=== PATIENT | female | born 1955 | race African-American/Black ===

== ENCOUNTER 2017-04-25 11:48 | Inpatient (IN) | payer OTHER ==
[2017-04-25 12:34] LABS: #Eosinphils 0.1 thou/uL (0.0-0.7); #Lymphocytes 0.8 thou/uL (1.20-3.40); #Monocytes 0.6 thou/uL (0.11-0.59); #Neutrophils 5.9 thou/uL (1.40-6.50); %Basophils 0.3 % (0.0-1.0); %Eosinophils 0.7 % (0.0-10.0); %Lymphocytes 11.2 % (21.0-51.0); %Monocytes 7.7 % (0.0-10.0); %Neutrophils 80.1 % (42.0-75.0); Hemoglobin 11.9 g/dL (12.0-16.0); Mean Corpuscular HGB CONC 30.1 g/dL (32.0-36.0); Mean Corpuscular Hemoglobin 25.7 pg (27.0-31.0); Mean Corpuscular Volume 85.3 fl (81.0-99.0); Mean Platelet Volume 7.7 fL (7.4-10.4); Platelet Count 283 thou/uL (130-400); RBC Distribution Width 15.2 % (11.5-14.5); Red Blood Cell (RBC) Count 4.62 mill/uL (4.20-5.40); White Blood Cell (WBC) Count 7.4 thou/uL (4.8-10.8)
--- NOTE | 2017-04-25 12:55 | RAD ---
PORTABLE CHEST: History: Abdominal pain, diarrhea. Congestion. Comparison: 04-23-17 FINDINGS: Film is suboptimal. The patient is poorly positioned with rotation and there is motion artifact. No confluent consolidation. I cannot exclude subtle infiltrate on this study. IMPRESSION: Suboptimal exam. If there is concern for pneumonia, recommend repeat study with better positioning an d better exposure. POS: [facility]
[2017-04-25 12:59] LABS: ALT (SGPT) 41 U/L (8-55); AST (SGOT) 72 U/L (5-34); Albumin 3.7 g/dL (3.4-4.8); Alkaline Phosphatase 112 U/L (40-150); Anion Gap 16 mmol/L (10-20); BUN (Urea Nitrogen) 22 mg/dL (9.8-20.1); Bilirubin, Total 0.5 mg/dL (0.2-1.2); CK (CPK) 1850 U/L (29-168); Calc. Creatinine Clearance 0 mL/min (70-130); Calcium 9.6 mg/dL (7.8-10.44); Carbon Dioxide 26 mmol/L (23-31); Chloride 99 mmol/L (98-107); Estimated GFR-MDRD 55; Globulin 4.8 g/dL (2.4-3.5); Glucose 122 mg/dL (80-115); Protein, Total 8.5 g/dL (6.0-8.3); Sodium 137 mmol/L (136-145)
[2017-04-25 13:09] LABS: CKMB 4.3 ng/mL (0-6.6); Troponin I 0.033 ng/mL (< 0.028)
[2017-04-25] MEDS ORDERED: Dextrose 50% Abboject 50 ML SYRINGE SLOW IVP PRN (15:54)
[2017-04-25] MEDS ORDERED: Ondansetron ODT 4 MG TAB PO PRN (15:54)
[2017-04-25] MEDS ORDERED: Sodium Chloride 0.9% 1,000 ML IV SCH (15:54)
[2017-04-25] MEDS ORDERED: Dextrose 5% in Water 1,000 ML IV PRN (15:54)
[2017-04-25] MEDS ORDERED: Oseltamivir 75 MG CAP PO SCH (16:00)
[2017-04-25 16:07] LABS: Troponin I 0.044 ng/mL (< 0.028)
[2017-04-25] MEDS: Labetalol HCl 100 MG/20 ML VIAL SLOW IVP SCH (16:34)
[2017-04-25] MEDS: Sodium Chloride 0.9% 1,000 ML IV SCH ×2 (16:35→22:06)
[2017-04-25] MEDS ORDERED: Benzonatate 100 MG CAP PO PRN (16:45)
[2017-04-25] MEDS ORDERED: Ondansetron ODT 8 MG TAB PO PRN (16:45)
[2017-04-25] MEDS ORDERED: Naproxen 500 MG TAB PO PRN (16:45)
[2017-04-25] MEDS ORDERED: Clotrimazole 1 % Cream 30 GM TUBE TOP PRN (16:45)
[2017-04-25] MEDS: metFORMIN 500 MG TAB PO SCH (17:23)
--- NOTE | 2017-04-25 21:41 | HP-2 ---
CODE STATUS: FULL. PRIMARY CARE PHYSICIAN: Demarco Leavitt M.D. ATTENDING: Kendal Molina M.D. RESIDENT: Mariano Guy MD CHIEF COMPLAINT: Productive cough and weakness. HISTORY OF PRESENT ILLNESS: This 62-year-old female who presents with a 5-day history of cough, feve rs, weakness, and productive secretions from her trach. She notes some pain around her trach site. She also notes that she is currently treated for urinary tract infection with Macrobid that started o n Saturday. Her son states that she has been basically bedbound for the past week because she has bee n feeling sick. At baseline, she uses a wheelchair for ambulation most times. She also denies chest pain at this time. She does admit to nausea, vomiting, diarrhea, and fatigue. She does admit to co ugh, congestion, shortness of breath as well. She has no other complaints at this time. In the ER, she was given DuoNebs, normal saline 1 liter bolus, and a normal saline at 100 mL per hour. PAST MEDICAL HISTORY: Significant for obesity hypoventilation syndrome, diabetes mellitus type 2, hy pertension, hyperlipidemia, coronary artery disease, hypothyroidism, obstructive sleep apnea, asthma, carpal tunnel, severe muscle deconditioning, and insomnia. PAST SURGICAL HISTORY: She has had a tubal ligation, then a hysterectomy, then a toenail removal, an d a tracheostomy placed in 2009. ALLERGIES: ASPIRIN and ROCEPHIN. MEDICATIONS: The patient is on: 1. Insulin NPH 70/30, 38 units SC a.m. as well as 28 units SC p.m. 2. Lotrimin 1% cream. 3. Clonidine 0.3 mg b.i.d. 4. Nitrofurantoin. 5. Macrobid 100 mg b.i.d. for the next 2 days. 6. Zofran 8 mg q.6 h. p.r.n. 7. Pataday 1 drop in each eye daily. 8. Hydrochlorothiazide 25 mg q.a.m. 9. Tylenol with Codeine No. 3 one to two tabs p.o. q.4 h. p.r.n. 10. Flexeril 10 mg p.o. q.8 h. p.r.n. 11. Isosorbide mononitrate 120 mg p.o. daily. 12. Clopidogrel bisulfate 75 mg p.o. daily. 13. Pantoprazole 40 mg p.o. daily. 14. Metformin 500 mg p.o. b.i.d. with meals. 15. Naprosyn 500 mg p.o. b.i.d. 16. Amlodipine and valsartan 10-160 mg 1 tablet p.o. daily. 17. Ferrous sulfate 325 mg. 18. Zolpidem tartrate 10 mg at bedtime. 19. Benzonatate 100 mg p.o. at bedtime. 20. Synthroid 125 mcg daily. 21. Potassium chloride 8 mEq 2 tabs p.o. daily. FAMILY HISTORY: Noncontributory. SOCIAL HISTORY: The patient had a [id number] smoking history, but she quit 30 years ago. No alcoh ol and no drug use. REVIEW OF SYSTEMS: GENERAL: She does admit to fevers and fatigue. Denies any weight changes or appetite changes. EYES: Denies vision changes or eye pain. ENT: Denies nasal congestion, rhinorrhea, sore throat. RESPIRATORY: Admits to cough, congestion, shortness of breath. Cardiovascular: Denies any chest pa in or palpitations. GASTROINTESTINAL: Denies any nausea. She does admit to vomiting and diarrhea. GENITOURINARY: Denies any incontinence, dysuria. SKIN: Denies any rashes or lesions except for some areas underneath some of her skin folds that get sweaty and can shave at times. MUSCULOSKELETAL: No pain, tenderness, stiffness, swelling, or arthritis in joints. NEUROLOGIC: She does admit to weakness and numbness especially in her right hand for carpal tunnel. PSYCHIATRIC: She denies anxiety or depression. PHYSICAL EXAMINATION: VITAL SIGNS: Blood pressure is 177/98, pulse is 97, respiration is 19, temperature max 100.7, pulse ox 99% on room air. Current weight is 174 kilos. GENERAL: She is alert and oriented x4. She is morbidly obese, appropriately interactive. EYES: PERRLA. Conjunctivae are within normal limits. ENT: Tympanic membranes pearly corral without bulging or erythema. Nasal mucosa and oropharynx are wi thin normal limits. NECK: Supple, no lymphadenopathy, no thyromegaly. She does have a tracheostomy in place. CARDIOVASCULAR: Regular rate and rhythm. No murmurs, no gallops. Radial and pedal pulses were equa l bilaterally. RESPIRATORY: Normal effort, no retractions. Lungs are clear to auscultation bilaterally. SKIN: Warm and dry. No cyanosis. No lesions. ABDOMEN: Soft, nontender to palpation. Bowel sounds are present x4. No mass or distention, but she has a very obese abdomen. EXTREMITIES: No clubbing, cyanosis, or edema. MUSCULOSKELETAL: Structure, tone, muscle strength, and range of motion within normal limits, but thi s patient is nonambulatory. NEUROLOGIC: No focal neurologic deficits. Sensation: Cranial nerves II through XII grossly intact. GCS was 15. PSYCHIATRIC: Appropriate. LABORATORY DATA: She had a white blood cell count 7.4, platelet count 284, hemoglobin 11.9, hematocr it 39.4, MCV 85.3%, neutrophils 80.1. CK was 1850, CK-MB was 4.3. Troponin I was 0.033. Sodium was 137, potassium 4.0, chloride 99, bicarb 26, BUN was 22, creatinine 1.21, glucose 122, calcium 9.6, t otal protein 8.5, albumin 3.7, total bilirubin 0.5, AST was 72, ALT was 41. Alkaline phosphatase was 111. Influenza A was positive. Influenza B was negative. Lactate was 0.8. EKG showed normal sinu s rhythm. Chest x-ray showed suboptimal, I cannot exclude a subtle infiltrate at this time. ASSESSMENT AND PLAN: A 62-year-old female that presents with 1. Influenza A. We will give her Tamiflu and supportive care. 2. Rhabdomyolysis. We will give her IV fluid and will track her CK going forward. 3. For an acute kidney injury, we will give her IV fluids and track her CK going forward as well. 4. Elevated troponins. We are going to trend. We will repeat an EKG if symptomatic. We do not ming lly feel like this is a cardiac cause at all, but we will ensure that the troponins that do downtrend . 5. Urinary tract infection. We will continue her Macrobid to complete that course. 6. For her status post tracheostomy, we will give her trach care and make sure that she has the appr opriate amount of oxygen saturation supplementation. 7. Obstructive sleep apnea. We will use her home BiPAP at night. 8. Diabetes mellitus type 2. We will continue her home meds, possibly check an A1c depending on how well her sugars are controlled. 9. Hypertension. We will continue her home meds from there. 10. Hypothyroidism. We will continue her home meds. DISPOSITION AND LENGTH OF HOSPITAL STAY: Will be inpatient and 2. Symptomatic medications will be provided. History and physical exam, as well as management, has been discussed with Dr. Molina.
[2017-04-25] MEDS: cloNIDine 0.3 MG TAB PO SCH (22:05)
[2017-04-25] MEDS: Nitrofurantoin Monohyd/M-Cryst 100 MG CAP PO SCH (22:06)
[2017-04-25] MEDS: Zolpidem Tartrate 5 MG TAB PO PRN (22:07)
[2017-04-25] MEDS: Cyclobenzaprine 10 MG TAB PO PRN (22:07)
[2017-04-25] MEDS: Acetaminophen 325 MG TAB PO PRN (22:07)
[2017-04-26] MEDS: Sodium Chloride 0.9% 1,000 ML IV SCH ×5 (04:57→21:19)
[2017-04-26 06:08] LABS: Anion Gap 18 mmol/L (10-20); BUN (Urea Nitrogen) 21 mg/dL (9.8-20.1); Calc. Creatinine Clearance 134 mL/min (70-130); Calcium 8.8 mg/dL (7.8-10.44); Carbon Dioxide 21 mmol/L (23-31); Chloride 105 mmol/L (98-107); Estimated GFR-MDRD 57; Glucose 94 mg/dL (80-115); Potassium 4.4 mmol/L (3.5-5.1); Sodium 140 mmol/L (136-145)
--- NOTE | 2017-04-26 06:25 | PDOC.FM ---
- Subjective Subjective: Patient had a good night. She states she still feels sick at the moment. She is still getting increased secretions from her trach that are being suctioned out. She denies any difficulty breathing or chest pain. She denies n/v/d, fevers, or chills. She states she has no aches or pains anywhere. She also states that she has no been able to get out of bed, but that is not far from her normal. She has no other complaints at this time. - Objective Vital Signs & Weight: Vital Signs (12 hours) Temp Pulse Resp BP BP Pulse Ox 04/26/17 04:00 98.8 F 83 16 132/63 100 04/26/17 02:19 98 04/26/17 02:16 98 04/25/17 23:40 96 04/25/17 22:05 142/89 H 04/25/17 20:10 96 04/25/17 20:06 96 04/25/17 20:05 100.0 F H 95 20 142/89 H 95 Weight Weight 169.19 kg I&O: 04/24/17 04/25/17 04/26/17 06:59 06:59 06:59 Intake Total 480 Balance 480 Result Diagrams: 04/25/17 12:09 04/26/17 05:04 <Mariano Guy - Last Filed: 04/26/17 09:11> - Objective Vital Signs & Weight: Vital Signs (12 hours) Temp Pulse Resp BP Pulse Ox 04/29/17 12:00 97.9 F 04/29/17 08:13 174/100 H 04/29/17 08:12 74 174/100 H 04/29/17 08:00 97.8 F 74 24 H 94 L Weight Admit Weight 169.19 kg Weight 176.3 kg Most Recent Monitor Data Heart Rate from ECG 72 NIBP 145/85 NIBP BP-Mean 104 Respiration from ECG 0 SpO2 92 I&O: 04/28/17 04/29/17 04/30/17 06:59 06:59 06:59 Intake Total 6374 3318 120 Output Total 1730 3315 1210 Balance 2773 -757 -1090 Result Diagrams: 04/29/17 05:03 04/29/17 05:03 <Kendal Molina - Last Filed: 04/29/17 16:00> Phys Exam - Physical Examination Constitutional: NAD HEENT: PERRLA, moist MMs Neck: no nodes, no JVD Trach in place Respiratory: no wheezing, clear to auscultation bilateral Cardiovascular: RRR, no significant murmur Gastrointestinal: soft, non-tender, no distention, positive bowel sounds Very obese Musculoskeletal: no edema, pulses present Neurological: non-focal, normal sensation, moves all 4 limbs Lymphatic: no nodes Psychiatric: normal affect, A&O x 3 Skin: no rash <Mariano Guy - Last Filed: 04/26/17 09:11> Dx/Plan (1) Influenza A Code(s): J10.1 - FLU DUE TO OTH IDENT INFLUENZA VIRUS W OTH RESP MANIFEST Status: Acute (2) Rhabdomyolysis Code(s): M62.82 - RHABDOMYOLYSIS Status: Acute (3) Pickwickian syndrome Code(s): E66.2 - MORBID (SEVERE) OBESITY WITH ALVEOLAR HYPOVENTILATION Status : Acute (4) Asthma Code(s): J45.909 - UNSPECIFIED ASTHMA, UNCOMPLICATED Status: Acute (5) Hypertension Code(s): I10 - ESSENTIAL (PRIMARY) HYPERTENSION Status: Acute (6) Hypothyroidism Code(s): E03.9 - HYPOTHYROIDISM, UNSPECIFIED Status: Acute (7) NILE (obstructive sleep apnea) Code(s): G47.33 - OBSTRUCTIVE SLEEP APNEA (ADULT) (PEDIATRIC) Status: Acute (8) DM2 (diabetes mellitus, type 2) Status: Acute (9) Coronary artery disease Code(s): I25.10 - ATHSCL HEART DISEASE OF [place] CORONARY ARTERY W/O ANG PCTRS Status: Acute - Plan Plan: 1. Influenza A - Continue Tamiflu - Continue supportive care 2. Rhabdomyelysis - Elevated CK previously into 600s on previous admissions - CK 1850 on admission - Continue IVF - Today CK 1870, will increase IVF 3. Pickwickian Syndrome - Continue Trach care - Continue O2 supplementation 4. Asthma - Continue home meds - Continue nebs 5. HTN - Continue home meds - Labetolol PRN 6. Hypothyroidism - Continue synthroid 7. NILE - Bipap machine at night 8. DM2 - Continue home meds - Accuchecks - SSI 9. CAD - Continue Plavix Disposition: Stable. Will track CK and discharge planning will be made from there. <Mariano Guy - Last Filed: 04/26/17 09:11> Attending Addendum - Attending Addendum I personally evaluated the patient and discussed the management with Dr. Guy on 04/26/17. I agree with the History, Examination, Assessment and Plan documented above with any addition or exceptions noted below- Patient reporting some increased cough and increased secretions that she is needing to suction via her trach. Still with decreased appetite. Afebrile VSS A/P: 1) Influenza A- continue Tamiflu; continue supportive care. 2) Rhabdomyolysis- continue IVF. 3) Obesity hypoventilation syndrome- continue supportive care. 4) DM- BG stable; continue current meds. <Kendal Molina - Last Filed: 04/29/17 16:00>
[2017-04-26] MEDS: Levothyroxine Sodium 125 MCG TAB PO SCH (06:41)
[2017-04-26 06:57] LABS: CKMB 4.1 ng/mL (0-6.6)
[2017-04-26 07:35] LABS: Troponin I 0.041 ng/mL (< 0.028)
[2017-04-26] MEDS ORDERED: Non-Formulary Item 1 EACH (Amlodipine Besylate/Valsartan [Amlodipine-Valsartan 10-160 Mg] PO SCH (09:00)
[2017-04-26] MEDS: Ketotifen Fumarate 0.025% Ophth Soln 5 ml Bottle EA EYE SCH (09:02)
[2017-04-26] MEDS: Insulin NPH/Reg Insulin Hm 300 UNITS/3 ML VIAL SC SCH (09:02)
[2017-04-26] MEDS: Potassium Chloride 8 MEQ TAB PO SCH (09:03)
[2017-04-26] MEDS: metFORMIN 500 MG TAB PO SCH ×2 (09:03→16:55)
[2017-04-26] MEDS: cloNIDine 0.3 MG TAB PO SCH ×2 (09:03→21:20)
[2017-04-26] MEDS: Valsartan 80 MG TAB PO SCH (09:03)
[2017-04-26] MEDS: Ferrous Sulfate 325 MG TAB PO SCH (09:03)
[2017-04-26] MEDS: Hydrochlorothiazide 25 MG TAB PO SCH (09:03)
[2017-04-26] MEDS: Amlodipine 10 MG TAB PO SCH (09:04)
[2017-04-26] MEDS: Enoxaparin Sodium 40 MG/0.4 ML SYRINGE SC SCH (09:04)
[2017-04-26] MEDS: Acetaminophen 325 MG TAB PO PRN ×3 (09:04→21:34)
[2017-04-26] MEDS: Clopidogrel Bisulfate 75 MG TAB PO SCH (09:04)
[2017-04-26] MEDS: Nitrofurantoin Monohyd/M-Cryst 100 MG CAP PO SCH ×2 (09:04→21:20)
[2017-04-26] MEDS: Oseltamivir 75 MG CAP PO SCH ×2 (09:04→21:20)
--- NOTE | 2017-04-26 11:41 | PDOC.EVN ---
Event Note - Event Note Event Note: I personally evaluated the patient and discussed the management with Dr. Guy on 04/25/17. I agree with history, examination, assessment and plan as documented by the resident. Briefly this is a 62 yo BF with h/o obesity/ hypoventilation syndrome with trach, type 2 DM, HTN, HLD, hypothyroidism presents c/o fever/chills, weakness, body aches, and increased cough with sputum production. Symptoms began 5 days ago. Also recently seen and started on treatment for UTI. No ill contacts. Has not been as mobile in her wheelchair due to her symptoms. PE: T100.7 P97 BP 177/98 RR19 99% on RA Lungs- CTA b/l CV- RRR, no murmur Abd- soft, protuberant; nt Labs: WBC 7.4 CK 1850 Cr 1.21 Influenza A positive A/P: 1) Influenza A - start tamiflu - continue trach collar 2) AURELIO - continue IVF 3) Rhabdomyolysis -continue IVF and monitor
[2017-04-26] MEDS: Cyclobenzaprine 10 MG TAB PO PRN (21:21)
[2017-04-26] MEDS: Zolpidem Tartrate 5 MG TAB PO PRN (21:21)
[2017-04-27] MEDS: Sodium Chloride 0.9% 1,000 ML IV SCH ×6 (01:08→22:11)
[2017-04-27] MEDS: Acetaminophen 325 MG TAB PO PRN ×2 (02:48→07:47)
[2017-04-27 05:20] LABS: Anion Gap 16 mmol/L (10-20); BUN (Urea Nitrogen) 22 mg/dL (9.8-20.1); CK (CPK) 1639 U/L (29-168); Calc. Creatinine Clearance 134 mL/min (70-130); Calcium 8.7 mg/dL (7.8-10.44); Carbon Dioxide 22 mmol/L (23-31); Chloride 108 mmol/L (98-107); Estimated GFR-MDRD 57; Glucose 99 mg/dL (80-115); Potassium 4.7 mmol/L (3.5-5.1); Sodium 141 mmol/L (136-145)
--- NOTE | 2017-04-27 06:12 | PDOC.FM ---
- Subjective Subjective: Patient refused home ventilator overnight as it was causing discomfort. Sometime overnight she was transitioned from 3L of O2 to 12L O2 to trach. This AM she was tachypneic and having difficulty getting 2 words out without being short of breath. Nurses reported that they were having trouble keeping her sats above 85%. Patient appeared to be using accessory muscles of respiration. - Objective MAR Reviewed: Yes Vital Signs & Weight: Vital Signs (12 hours) Temp Pulse Resp BP BP Pulse Ox 04/27/17 02:23 104 H 28 H 96 04/26/17 22:44 99 22 H 04/26/17 21:20 135/68 04/26/17 19:45 98.5 F 96 18 135/68 94 L 04/26/17 19:10 82 22 H 93 L Weight Admit Weight 169.19 kg Weight 170.46 kg I&O: 04/25/17 04/26/17 04/27/17 06:59 06:59 06:59 Intake Total 19370 Balance 1937 3270 Result Diagrams: 04/25/17 12:09 04/27/17 04:16 EKG Reviewed by me: No Radiology Reviewed by me: No Phys Exam - Physical Examination Appeared to be in acute respiratory distress HEENT: moist MMs Neck: supple Diffuse wheezing throughout, tachypneic Cardiovascular: RRR Gastrointestinal: soft, positive bowel sounds Musculoskeletal: pulses present Neurological: non-focal Psychiatric: normal affect Skin: no rash, cap refill <2 seconds Dx/Plan (1) Acute respiratory failure with hypoxia and hypercapnia Code(s): J96.01 - ACUTE RESPIRATORY FAILURE WITH HYPOXIA; J96.02 - ACUTE RESPIRATORY FAILURE WITH HYPERCAPNIA Status: Acute (2) Influenza A Code(s): J10.1 - FLU DUE TO OTH IDENT INFLUENZA VIRUS W OTH RESP MANIFEST Status: Acute (3) Rhabdomyolysis Code(s): M62.82 - RHABDOMYOLYSIS Status: Acute (4) DM2 (diabetes mellitus, type 2) Status: Chronic (5) Pickwickian syndrome Code(s): E66.2 - MORBID (SEVERE) OBESITY WITH ALVEOLAR HYPOVENTILATION Status : Chronic (6) Asthma Code(s): J45.909 - UNSPECIFIED ASTHMA, UNCOMPLICATED Status: Chronic (7) Hypothyroidism Code(s): E03.9 - HYPOTHYROIDISM, UNSPECIFIED Status: Acute (8) Morbid obesity with BMI of 70 and over, adult Code(s): E66.01 - MORBID (SEVERE) OBESITY DUE TO EXCESS CALORIES; Z68.45 - BODY MASS INDEX (BMI) 70 OR GREATER, ADULT Status: Chronic (9) NILE (obstructive sleep apnea) Code(s): G47.33 - OBSTRUCTIVE SLEEP APNEA (ADULT) (PEDIATRIC) Status: Chronic - Plan Plan: 1. Influenza A - Continue Tamiflu for total of 5 days - Continue supportive care 2. Rhabdomyolysis - Elevated CK; in 600s on previous admissions - CK 1850 on admission; down to 1639 today - Continue IVF; NS @ 225 ml/hr 3. Pickwickian Syndrome - Continue Trach care - Continue O2 supplementation 4. Asthma - Continue home meds - Continue nebs 5. HTN - Continue home meds - Labetolol PRN 6. Hypothyroidism - Continue synthroid 7. NILE - Bipap machine at night 8. DM2 - Continue home meds - Accuchecks - SSI - BG 99 this AM 9. CAD - Continue Plavix 10. Acute hypoxic hypercapneic respiratory failure - Patient transitioned to ICU for ventilator care - Repeat CXR to rule out new infection - Continue suctioning trach - Continue nebulizer treatments - Consult pulmonology Disposition: Patient transitioned to ICU for acute hypoxic, hypercapneic respiratory failure
[2017-04-27] MEDS: Levothyroxine Sodium 125 MCG TAB PO SCH (06:36)
[2017-04-27] MEDS: Labetalol HCl 100 MG/20 ML VIAL SLOW IVP SCH (06:44)
[2017-04-27] MEDS ORDERED: Clopidogrel Bisulfate 75 MG TAB ONE ×2 (07:42→07:58)
[2017-04-27] MEDS: Enoxaparin Sodium 40 MG/0.4 ML SYRINGE SC SCH (07:45)
[2017-04-27] MEDS: Clopidogrel Bisulfate 75 MG TAB PO SCH (07:45)
[2017-04-27] MEDS: Potassium Chloride 8 MEQ TAB PO SCH (07:46)
[2017-04-27] MEDS: Hydrochlorothiazide 25 MG TAB PO SCH (07:46)
[2017-04-27] MEDS: Amlodipine 10 MG TAB PO SCH (07:46)
[2017-04-27] MEDS: metFORMIN 500 MG TAB PO SCH ×3 (07:46→17:38)
[2017-04-27] MEDS: Valsartan 80 MG TAB PO SCH (07:46)
[2017-04-27] MEDS: Ferrous Sulfate 325 MG TAB PO SCH (07:46)
[2017-04-27] MEDS: cloNIDine 0.3 MG TAB PO SCH ×2 (07:46→20:42)
[2017-04-27] MEDS: Ketotifen Fumarate 0.025% Ophth Soln 5 ml Bottle EA EYE SCH (07:47)
[2017-04-27] MEDS: Insulin NPH/Reg Insulin Hm 300 UNITS/3 ML VIAL SC SCH (07:47)
[2017-04-27] MEDS: Nitrofurantoin Monohyd/M-Cryst 100 MG CAP PO SCH ×2 (07:47→20:43)
[2017-04-27] MEDS: Oseltamivir 75 MG CAP PO SCH ×2 (07:47→20:43)
[2017-04-27 08:21] LABS: CO2 Tension 65.1 mmHg (35.0-45.0); O2 Tension (PaO2) 55.6 mmHg (80.0-100.0); pH, Arterial 7.27 (7.35-7.45)
[2017-04-27 08:22] LABS: Calcium, Ionized 1.2 mmol/L (1.12-1.30); Hematocrit-ABG 37.1 % (36.0-47.0); Hemoglobin (Hb) 10.8 g/dL (12.0-16.0)
[2017-04-27 08:23] LABS: ALV-art Gradient 112.575 (0-20); Puncture Site RRA
[2017-04-27] MEDS ORDERED: guaiFENesin 200 MG TAB PO PRN (10:13)
--- NOTE | 2017-04-27 10:33 | RAD ---
CHEST 1 VIEW: HISTORY: Dyspnea. COMPARISON: 04/25/17. FINDINGS: Cardiac silhouette is magnified is magnified and enlarged. The patient is rotated rightward. Pulmon elsa vascular engorgement and widespread parenchymal opacity have increased since the prior study. Tr acheostomy appliance overlies the upper trachea. IMPRESSION: Worsening pulmonary edema. POS: [facility]
--- NOTE | 2017-04-27 10:48 | RAD ---
SINGLE VIEW OF THE CHEST: COMPARISON: 04/27/17 at 9:57 a.m. FINDINGS: A single view of the chest shows a normal-size cardiomediastinal silhouette. The tracheostomy is unc hanged in position. There are stable multifocal infiltrates. IMPRESSION: Stable multifocal infiltrates. POS: [facility]
[2017-04-27] MEDS: Vancomycin HCl 1 GM in Premix Bag 1 BAG IVPB SCH (14:15)
--- NOTE | 2017-04-27 19:41 | ADD-PRG ---
DATE OF SERVICE: 04/27/2017 Please see the note from Dr. Lund, for which I concur. The patient is being transferred to the ICU. The patient was seen and evaluated and examined with the residents floor basically called us he r ABG results and realized how poor it looked, we immediately went to evaluate her by bedside and was definitely tachypneic and struggling to breathe, consistent with her ABG, which showed a pH 7.27, pC O2 of 65, pO2 of 55.6, trach collar 35% O2. The patient was transferred to the unit, where we would get chest x-rays, pulmonary involved, put her on a ventilator and we will likely add antibiotics for likely superimposed pneumonia on top of the flu that she has and fluids as needed and maybe for sedat ion or little bit more comfortable right now.
--- NOTE | 2017-04-27 21:39 | CON ---
DATE OF CONSULTATION: 04/27/2017 HISTORY OF PRESENT ILLNESS: Ms. Peterson is a 62-year-old female. She has a cuffed #[address] She has a home nighttime ventilator. This was done, she tells me in 2009. She presented t o the hospital on the with complaints of cough, weakness, fever, pain around her trach, some mil d shortness of breath. She was on Macrobid for urinary tract infection. She is nonambulatory essentially. She was admitted to the telemetry unit would not wear her nocturnal ventilation last night. She was transferred to the ICU because of hypercarbia and acidemia today. I was consulted to assist in her m anagement. PAST MEDICAL HISTORY: Remarkable for Pickwickian syndrome, diabetes, hypertension, lipid disorder, h istory of coronary artery disease, history of hypothyroidism, history of life threatening obesity, hi story of tubal ligation, status post hysterectomy. SOCIAL HISTORY: She is a nonsmoker, nondrinker, nondrug user. ALLERGIES: ASPIRIN and CEPHALOSPORINS. MEDICATIONS: She reportedly on NPH insulin, Catapres, Macrodantin, hydrochlorothiazide, Ismo, Plavix , Protonix, metformin, Naprosyn, amlodipine, Ambien, Tessalon, Synthroid, iron. She is a distant smoker. FAMILY HISTORY: Negative for lung disease at an early age. REVIEW OF SYSTEMS: Ten point review of systems otherwise negative. PHYSICAL EXAMINATION: GENERAL: She is afebrile, heart rate 76, blood pressure 101/49, respiratory rate was in the teens. She was awake. HEENT: Pupils are equal. Sclerae is anicteric. NECK: Supple. Her cuff was inflated to her tracheostomy and she was connected to her home ventilato r. LUNGS: Clear. HEART: Regular rhythm. S1 and S2 are normal. ABDOMEN: Soft and nontender. EXTREMITIES: Without asymmetry. LABORATORY DATA: There is no CBC today. There is electrolytes today with sodium of 141, potassium 4 .7, chloride 108, bicarb 22, BUN 22, creatinine 1.17. Blood gas today 7.27, CO2 of 65, pO2 of 55. C hest radiograph shows patchy bilateral infiltrates. Admitting film was of poor quality for compariso n, I have reviewed these. IMPRESSION: Pneumonia, likely post-viral. PLAN: Mechanical ventilation, IV antimicrobial therapy, steroids, nebulizer treatments, repeat blood gas in the morning. Critical care time was 30 minutes.
[2017-04-28] MEDS: Vancomycin HCl 1 GM in Premix Bag 1 BAG IVPB SCH ×2 (01:00→12:45)
[2017-04-28 04:07] LABS: Band 10 % (5-11); Hemoglobin 10.4 g/dL (12.0-16.0); Lymphocytes 12 % (21-51); MDiff Complete? YES; Mean Corpuscular Hemoglobin 25.1 pg (27.0-31.0); Mean Corpuscular Volume 86.4 fl (81.0-99.0); Mean Platelet Volume 7.7 fL (7.4-10.4); Metamyelocyte 2 % (0-0); Monocytes 1 % (0-10); Neutrophil 75 % (42-75); Platelet Count 239 thou/uL (130-400); RBC Distribution Width 15.3 % (11.5-14.5); Red Blood Cell (RBC) Count 4.14 mill/uL (4.20-5.40); White Blood Cell (WBC) Count 4.2 thou/uL (4.8-10.8)
[2017-04-28 04:09] LABS: Anion Gap 14 mmol/L (10-20); BUN (Urea Nitrogen) 21 mg/dL (9.8-20.1); CK (CPK) 917 U/L (29-168); Calc. Creatinine Clearance 145 mL/min (70-130); Calcium 8.8 mg/dL (7.8-10.44); Carbon Dioxide 26 mmol/L (23-31); Chloride 104 mmol/L (98-107); Estimated GFR-MDRD 62; Glucose 159 mg/dL (80-115); Potassium 5.3 mmol/L (3.5-5.1); Sodium 139 mmol/L (136-145)
[2017-04-28] MEDS: Sodium Chloride 0.9% 1,000 ML IV SCH ×5 (05:00→21:44)
--- NOTE | 2017-04-28 06:18 | PDOC.FM ---
- Objective Vital Signs & Weight: Vital Signs (12 hours) Temp Pulse Resp BP Pulse Ox 04/28/17 02:43 74 33 H 100 04/27/17 21:00 99.1 F 04/27/17 20:42 173/89 H 04/27/17 20:00 99.1 F 85 34 H 95 04/27/17 18:48 69 04/27/17 18:47 66 16 92 L Weight Admit Weight 169.19 kg Weight 170.46 kg I&O: 04/26/17 04/27/17 04/28/17 06:59 06:59 06:59 Intake Total 1938 5770 2129 Output Total 1330 Balance 1937 5770 799 Result Diagrams: 04/28/17 03:15 04/28/17 03:15 Dx/Plan (1) Acute respiratory failure with hypoxia and hypercapnia Code(s): J96.01 - ACUTE RESPIRATORY FAILURE WITH HYPOXIA; J96.02 - ACUTE RESPIRATORY FAILURE WITH HYPERCAPNIA Status: Acute (2) Influenza A Code(s): J10.1 - FLU DUE TO OTH IDENT INFLUENZA VIRUS W OTH RESP MANIFEST Status: Acute (3) Rhabdomyolysis Code(s): M62.82 - RHABDOMYOLYSIS Status: Acute (4) DM2 (diabetes mellitus, type 2) Status: Chronic (5) Pickwickian syndrome Code(s): E66.2 - MORBID (SEVERE) OBESITY WITH ALVEOLAR HYPOVENTILATION Status : Chronic (6) Asthma Code(s): J45.909 - UNSPECIFIED ASTHMA, UNCOMPLICATED Status: Chronic (7) Hypothyroidism Code(s): E03.9 - HYPOTHYROIDISM, UNSPECIFIED Status: Acute (8) Morbid obesity with BMI of 70 and over, adult Code(s): E66.01 - MORBID (SEVERE) OBESITY DUE TO EXCESS CALORIES; Z68.45 - BODY MASS INDEX (BMI) 70 OR GREATER, ADULT Status: Chronic (9) NILE (obstructive sleep apnea) Code(s): G47.33 - OBSTRUCTIVE SLEEP APNEA (ADULT) (PEDIATRIC) Status: Chronic (10) Pneumonia Code(s): J18.9 - PNEUMONIA, UNSPECIFIED ORGANISM Status: Acute Qualifiers: Pneumonia type: due to unspecified organism Laterality: right - Plan Plan: 1. Influenza A - Continue Tamiflu for total of 5 days - Continue supportive care 2. Rhabdomyolysis - Elevated CK; in 600s on previous admissions - CK 1850 on admission; down to 917 today - Continue IVF; NS @ 225 ml/hr 3. Pickwickian Syndrome - Continue Trach care - Continue O2 supplementation 4. Asthma - Continue home meds - Continue nebs 5. HTN - Continue home meds - Labetolol PRN 6. Hypothyroidism - Continue synthroid 7. NILE - Home ventilator at night 8. DM2 - Continue home meds - Accuchecks - SSI - BG 159 this AM 9. CAD - Continue Plavix 10. Acute hypoxic hypercapneic respiratory failure - Patient transitioned to ICU for ventilator care - CXR showed multifocal infiltrates on right - Continue suctioning trach - Continue nebulizer treatments - Appreciate pulmonology recs - Continue IV vancomycin and levoquin for coverage of post-viral pneumonia and CAP - Continue steroids Disposition: Patient transitioned to ICU yesterday for acute hypoxic, hypercapneic respiratory failure. Continue treatment for presumed post-viral pneumonia.
[2017-04-28] MEDS: Levothyroxine Sodium 125 MCG TAB PO SCH (06:31)
[2017-04-28] MEDS: HumaLOG 300 UNITS/3 ML VIAL SC PRN ×3 (06:46→21:55)
[2017-04-28] MEDS: Insulin NPH/Reg Insulin Hm 300 UNITS/3 ML VIAL SC SCH (08:05)
[2017-04-28] MEDS: metFORMIN 500 MG TAB PO SCH ×2 (08:35→16:33)
--- NOTE | 2017-04-28 08:35 | RAD ---
SINGLE VIEW OF THE CHEST: COMPARISON: 04/27/17. HISTORY: Ventilated patient with respiratory failure. FINDINGS: A single view of the chest shows a normal size cardiomediastinal silhouette. A tracheostomy is uncha nged in position. There are subtle multifocal opacities in the lungs. No pleural effusion is seen. IMPRESSION: Stable exam. POS: [facility]
[2017-04-28] MEDS: Ferrous Sulfate 325 MG TAB PO SCH (09:05)
[2017-04-28] MEDS: Enoxaparin Sodium 40 MG/0.4 ML SYRINGE SC SCH (09:06)
[2017-04-28] MEDS: cloNIDine 0.3 MG TAB PO SCH ×2 (09:06→20:25)
[2017-04-28] MEDS: Amlodipine 10 MG TAB PO SCH (09:06)
[2017-04-28] MEDS: Clopidogrel Bisulfate 75 MG TAB PO SCH (09:07)
[2017-04-28] MEDS: Nitrofurantoin Monohyd/M-Cryst 100 MG CAP PO SCH ×2 (09:09→21:44)
[2017-04-28] MEDS: Ketotifen Fumarate 0.025% Ophth Soln 5 ml Bottle EA EYE SCH (09:09)
[2017-04-28] MEDS: Valsartan 80 MG TAB PO SCH (09:25)
[2017-04-28] MEDS: Oseltamivir 75 MG CAP PO SCH ×2 (09:27→21:44)
[2017-04-28] MEDS: Potassium Chloride 8 MEQ TAB PO SCH (09:55)
[2017-04-28 10:32] LABS: Actual Bicarbonate (HCO3a) 23.7 mEq/L (22-26); Base Excess (BEa) -2.4 mEq/L (0 (+/-) 2.5); CO2 Tension 46.6 mmHg (35.0-45.0); Hematocrit-ABG 35.8 % (36.0-47.0); O2 Tension (PaO2) 63.6 mmHg (80.0-100.0); pH, Arterial 7.32 (7.35-7.45)
[2017-04-28 10:33] LABS: Analyzer IN Cardio ER; Calcium, Ionized 1.2 mmol/L (1.12-1.30); Hemoglobin (Hb) 10.5 g/dL (12.0-16.0); Puncture Site RRA
--- NOTE | 2017-04-28 13:49 | PRG ---
DATE OF SERVICE: 04/28/2017 SUBJECTIVE: Ms. Peterson was placed on T-collar this morning. Blood gas post T-collar shows that her CO2 retention and her pH has essentially returned to her baseline. She still reports being short of breath. OBJECTIVE: VITAL SIGNS: On exam, she is 160/87, heart rate 91, she is in sinus rhythm, respiratory rate is 24, and oximetry is 93, on a trach collar. LUNGS: Remarkable for diffuse wheezes. CARDIOVASCULAR: Regular rhythm. ABDOMEN: Soft. LABORATORY DATA: On review of her lab, white count 4.2, hemoglobin is 10.4, platelets 239. Electrol ytes, sodium 139, potassium 5.3, chloride 104, bicarb 26, BUN 21, creatinine 1.08. Her deconditionin g and her size not helping. Repeat chest radiographs have been reviewed today by me. Chest radiograph was underpenetrated, difficult to say whether she really has infiltrates, perhaps on e in her lingula and I think most of her distresses were created by bronchospasm. We will continue w [facility] supportive care in the Critical Care Unit. She will likely go back on mechanical ventilation her e shortly. She would benefit from staying in the Critical Care Unit in my opinion. IMPRESSION: 1. Status post mechanical ventilation yesterday and last night using her home ventilator. 2. Pneumonia, likely postviral. 3. Reactive airways by exam, it is likely that she will require ventilation again for the days over. She says she is reasonably comfortable now, but starting to feel a little fatigued. Critical care time was 30 minutes.
--- NOTE | 2017-04-28 14:44 | ADD-PRG ---
ADDENDUM: 04/28/2017 Please see the notes from Dr. Lund for which I concur. The patient was moved over to the unit, has been on a ventilator through her trach now for the last 2 4 hours and is symptomatically doing better. On exam, chest is moving a lot better air, still bilate ral crackles. Chest x-ray basically showed infiltrates, possible edema as well, very under inflated, so improving and Pulmonary is following along. Patient was seen and evaluated, examined and discuss ed with the residents by bedside.
[2017-04-28] MEDS: Labetalol HCl 100 MG/20 ML VIAL SLOW IVP SCH ×3 (20:25→22:31)
[2017-04-28] MEDS: Zolpidem Tartrate 5 MG TAB PO PRN (21:43)
[2017-04-28] MEDS: hydrALAZINE 20 MG/ML VIAL SLOW IVP PRN ×2 (21:55→22:31)
[2017-04-28] MEDS ORDERED: Lorazepam 2 MG/ML VIAL SLOW IVP ONE (23:41)
[2017-04-29] MEDS: Vancomycin HCl 1 GM in Premix Bag 1 BAG IVPB SCH (00:10)
[2017-04-29 00:56] LABS: Vancomycin, Trough 13.2 ug/mL
[2017-04-29] MEDS: Sodium Chloride 0.9% 1,000 ML IV SCH ×4 (03:01→23:12)
[2017-04-29] MEDS: Acetaminophen 325 MG TAB PO PRN (03:02)
[2017-04-29] MEDS: Levothyroxine Sodium 125 MCG TAB PO SCH (05:23)
[2017-04-29] MEDS: HumaLOG 300 UNITS/3 ML VIAL SC PRN ×4 (05:31→21:23)
[2017-04-29 06:07] LABS: Anion Gap 15 mmol/L (10-20); BUN (Urea Nitrogen) 21 mg/dL (9.8-20.1); CK (CPK) 564 U/L (29-168); Calc. Creatinine Clearance 176 mL/min (70-130); Calcium 9.1 mg/dL (7.8-10.44); Carbon Dioxide 24 mmol/L (23-31); Chloride 106 mmol/L (98-107); Estimated GFR-MDRD 75; Glucose 197 mg/dL (80-115); Hemoglobin 10.9 g/dL (12.0-16.0); Mean Corpuscular HGB CONC 29.7 g/dL (32.0-36.0); Mean Corpuscular Hemoglobin 25.2 pg (27.0-31.0); Mean Corpuscular Volume 84.9 fl (81.0-99.0); Mean Platelet Volume 7.9 fL (7.4-10.4); Platelet Count 274 thou/uL (130-400); Potassium 4.6 mmol/L (3.5-5.1); RBC Distribution Width 15.4 % (11.5-14.5); Red Blood Cell (RBC) Count 4.33 mill/uL (4.20-5.40); Sodium 140 mmol/L (136-145); White Blood Cell (WBC) Count 5.1 thou/uL (4.8-10.8)
[2017-04-29] MEDS: Potassium Chloride 8 MEQ TAB PO SCH (08:10)
[2017-04-29] MEDS: Ferrous Sulfate 325 MG TAB PO SCH (08:11)
[2017-04-29] MEDS: Oseltamivir 75 MG CAP PO SCH ×2 (08:11→21:24)
[2017-04-29] MEDS: Clopidogrel Bisulfate 75 MG TAB PO SCH (08:11)
[2017-04-29] MEDS: metFORMIN 500 MG TAB PO SCH ×2 (08:12→16:55)
[2017-04-29] MEDS: Amlodipine 10 MG TAB PO SCH (08:12)
[2017-04-29] MEDS: cloNIDine 0.3 MG TAB PO SCH ×2 (08:13→21:24)
[2017-04-29] MEDS: Nitrofurantoin Monohyd/M-Cryst 100 MG CAP PO SCH ×2 (08:14→21:24)
[2017-04-29] MEDS: Enoxaparin Sodium 40 MG/0.4 ML SYRINGE SC SCH (08:14)
[2017-04-29] MEDS: Insulin NPH/Reg Insulin Hm 300 UNITS/3 ML VIAL SC SCH (08:17)
[2017-04-29 08:42] LABS: Band 9 % (5-11); Hypochromia SLIGHT = 6-15 cells (100X) (0-5/hpf); Lymphocytes 13 % (21-51); Monocytes 6 % (0-10); Polychromasia SLIGHT = 2-3 cells (100X) (0-2/hpf); Reactive Lymphocytes 1 % (0-10)
[2017-04-29 08:43] LABS: Neutrophil 71 % (42-75); PLT Morphology Comment Appears Adequate
[2017-04-29] MEDS: Valsartan 80 MG TAB PO SCH (09:35)
[2017-04-29] MEDS: Ketotifen Fumarate 0.025% Ophth Soln 5 ml Bottle EA EYE SCH (09:36)
--- NOTE | 2017-04-29 10:01 | PDOC.FM ---
- Subjective Subjective: No acute events overnight. Patient reports she did not sleep well and has been anxious since around midnight. She continues to be afebrile with normal vital signs. - Objective MAR Reviewed: Yes Vital Signs & Weight: Vital Signs (12 hours) Temp Pulse Resp BP Pulse Ox 04/29/17 08:13 174/100 H 04/29/17 08:12 74 174/100 H 04/29/17 08:00 97.8 F 04/29/17 03:00 97.9 F 04/29/17 02:31 74 04/29/17 02:29 72 20 94 L 04/28/17 23:00 97.9 F 04/28/17 22:45 70 04/28/17 22:44 73 24 H 97 04/28/17 22:31 90 238/139 H Weight Admit Weight 169.19 kg Weight 176.3 kg Most Recent Monitor Data Heart Rate from ECG 79 NIBP 161/81 NIBP BP-Mean 107 Respiration from ECG 31 SpO2 86 I&O: 04/28/17 04/29/17 04/30/17 06:59 06:59 06:59 Intake Total 4883 2558 120 Output Total 1730 3315 320 Balance 5582 -026 -200 Result Diagrams: 04/29/17 05:03 04/29/17 05:03 <Mekhi Holden - Last Filed: 04/29/17 09:59> - Objective Vital Signs & Weight: Vital Signs (12 hours) Temp Pulse Resp BP Pulse Ox 04/29/17 22:03 86 25 H 88 L 04/29/17 21:24 186/108 H 04/29/17 20:00 97.6 F 83 22 H 92 L 04/29/17 19:00 97.6 F 04/29/17 16:40 89 32 H 96 04/29/17 16:00 98.0 F 04/29/17 12:00 97.9 F Weight Admit Weight 169.19 kg Weight 176.3 kg Most Recent Monitor Data Heart Rate from ECG 93 NIBP 177/90 NIBP BP-Mean 114 Respiration from ECG 27 SpO2 90 I&O: 04/28/17 04/29/17 04/30/17 06:59 06:59 06:59 Intake Total 4883 2558 1850 Output Total 1730 3315 1795 Balance 8117 -361 55 Result Diagrams: 04/29/17 05:03 04/29/17 05:03 <José MiguelMaria M - Last Filed: 04/29/17 22:24> Phys Exam - Physical Examination Constitutional: NAD HEENT: moist MMs Neck: full ROM Respiratory: no wheezing, no rhonchi Cardiovascular: RRR, no significant murmur Gastrointestinal: soft, no distention Neurological: moves all 4 limbs Psychiatric: normal affect, A&O x 3 <Mekhi Holden - Last Filed: 04/29/17 09:59> Dx/Plan (1) Acute respiratory failure with hypoxia and hypercapnia Code(s): J96.01 - ACUTE RESPIRATORY FAILURE WITH HYPOXIA; J96.02 - ACUTE RESPIRATORY FAILURE WITH HYPERCAPNIA Status: Acute Plan: Patient back on home ventilator, maintaining saturation Continue management per Pulm Continue nebs, steroids, and trach suctioning (2) Influenza A Code(s): J10.1 - FLU DUE TO OTH IDENT INFLUENZA VIRUS W OTH RESP MANIFEST Status: Acute Plan: Will complete 5 day course of Tamiflu CXR unchanged from yesterday Continue supportive care (3) Pneumonia Code(s): J18.9 - PNEUMONIA, UNSPECIFIED ORGANISM Status: Acute QualifierTitle: Pneumonia type: due to unspecified organism Laterality: right Plan: Continue Vanc and Levoquin Work of breathing has improved since being moved to the unit ABG pending this morning (4) DM2 (diabetes mellitus, type 2) Status: Chronic Plan: mild SSI accuchecks BG of 197 this AM (5) Pickwickian syndrome Code(s): E66.2 - MORBID (SEVERE) OBESITY WITH ALVEOLAR HYPOVENTILATION Status : Chronic Plan: Continue home ventilator oxygen supplementation Continue trach care (6) Elevated CK Status: Acute Plan: CK improving today (7) Hypertension Code(s): I10 - ESSENTIAL (PRIMARY) HYPERTENSION Status: Acute Plan: Continue home meds Hydralazine PRN and labetalol PRN Pressures have been elevated overnight but have been well controlled with the addition of labetalol PRN (8) Hypothyroidism Code(s): E03.9 - HYPOTHYROIDISM, UNSPECIFIED Status: Acute Plan: Continue home synthroid dose (9) NILE (obstructive sleep apnea) Code(s): G47.33 - OBSTRUCTIVE SLEEP APNEA (ADULT) (PEDIATRIC) Status: Chronic Plan: Continue home vent - Plan Plan: Plan: -Monitor in ICU overnight -Patient is up 6kg from admission weight -strict I/O's <Mekhi Holden - Last Filed: 04/29/17 09:59> Attending Addendum - Attending Addendum I personally evaluated the patient and discussed the management with Dr. Holden. I agree with the History, Examination, Assessment and Plan documented above with any addition or exceptions noted below. The patient is feeling a little better. The patient has gained weight since admission. Will monitor I/O. IV fluids being decreased. If pt shows signs of fluid overload, will treat with lasix. Maintain in ICU. Pt going on and off home vent. <Maria M Valdez - Last Filed: 04/29/17 22:24>
--- NOTE | 2017-04-29 10:21 | RAD ---
SINGLE VIEW OF THE CHEST: COMPARISON: 04/28/17. HISTORY: Ventilated patient with respiratory failure. FINDINGS: A single view of the chest shows an enlarged but stable cardiomediastinal silhouette. This exam is l imited secondary to patient's body habitus. The endotracheal tube is unchanged in position. Stable multifocal opacities are seen. IMPRESSION: Stable exam. POS: OFF
[2017-04-29] MEDS: Vancomycin HCl 1.25 GM in Sodium Chloride 0.9% 250 ML 250 ML IVPB SCH (12:31)
--- NOTE | 2017-04-29 14:34 | PRG ---
DATE OF SERVICE: 04/29/2017 SUBJECTIVE: Ms. Peterson is doing well. She says she is feeling better. OBJECTIVE: VITAL SIGNS: Blood pressure 164/97, heart rate is 90, respiratory rate 20. LUNGS: She still has diffuse wheezes, but she has more air movement today than she had yesterday. HEART: Regular rhythm. ABDOMEN: Soft. She is very good about knowing when she needs to go back on mechanical ventilation. LABORATORY DATA: White count 5.1, hemoglobin 10.9, platelets 274. Sodium 140, potassium 4.6, chloride 106, bicarbonate 24, BUN 21, creatinine 0.9. IMPRESSION: 1. Status asthmaticus. 2. ? Community-acquired pneumonia. 3. Respiratory failure, acute on chronic. 4. Home nocturnal ventilation for obesity hypoventilation syndrome. 5. Life threatening obesity. PLAN: Continue current care in the critical care unit.
[2017-04-29] MEDS ORDERED: Bisacodyl 10 MG SUPP PR PRN (18:56)
[2017-04-29] MEDS ORDERED: Bisacodyl 5 MG TAB PO PRN (18:56)
[2017-04-29] MEDS ORDERED: Mineral Oil ENEMA PR PRN (18:56)
[2017-04-29] MEDS: Labetalol HCl 100 MG/20 ML VIAL SLOW IVP SCH (23:12)
[2017-04-29] MEDS: Zolpidem Tartrate 5 MG TAB PO PRN (23:41)
[2017-04-30] MEDS: Vancomycin HCl 1.25 GM in Sodium Chloride 0.9% 250 ML 250 ML IVPB SCH ×2 (01:07→13:26)
[2017-04-30] MEDS: Levothyroxine Sodium 125 MCG TAB PO SCH (05:19)
[2017-04-30] MEDS: Labetalol HCl 100 MG/20 ML VIAL SLOW IVP SCH (05:19)
[2017-04-30] MEDS: HumaLOG 300 UNITS/3 ML VIAL SC PRN ×4 (05:22→21:17)
[2017-04-30 05:56] LABS: Anion Gap 13 mmol/L (10-20); BUN (Urea Nitrogen) 22 mg/dL (9.8-20.1); CK (CPK) 289 U/L (29-168); Calc. Creatinine Clearance 170 mL/min (70-130); Carbon Dioxide 26 mmol/L (23-31); Chloride 106 mmol/L (98-107); Estimated GFR-MDRD 70; Glucose 241 mg/dL (80-115); Potassium 4.5 mmol/L (3.5-5.1); Sodium 140 mmol/L (136-145)
[2017-04-30 06:21] LABS: Band 5 % (5-11); Hemoglobin 10.9 g/dL (12.0-16.0); Hypochromia SLIGHT = 6-15 cells (100X) (0-5/hpf); Lymphocytes 10 % (21-51); MDiff Complete? YES; Mean Corpuscular HGB CONC 29.7 g/dL (32.0-36.0); Mean Corpuscular Hemoglobin 25.2 pg (27.0-31.0); Mean Corpuscular Volume 84.6 fl (81.0-99.0); Mean Platelet Volume 8.3 fL (7.4-10.4); Monocytes 11 % (0-10); Myelocyte 2 % (0-0); Neutrophil 72 % (42-75); Platelet Count 264 thou/uL (130-400); RBC Distribution Width 15.2 % (11.5-14.5); Red Blood Cell (RBC) Count 4.34 mill/uL (4.20-5.40); White Blood Cell (WBC) Count 6.2 thou/uL (4.8-10.8)
[2017-04-30] MEDS: Sodium Chloride 0.9% 1,000 ML IV SCH ×3 (06:37→21:07)
[2017-04-30] MEDS: Insulin NPH/Reg Insulin Hm 300 UNITS/3 ML VIAL SC SCH (07:56)
[2017-04-30] MEDS: Clopidogrel Bisulfate 75 MG TAB PO SCH (07:58)
[2017-04-30] MEDS: Nitrofurantoin Monohyd/M-Cryst 100 MG CAP PO SCH ×2 (07:58→21:07)
[2017-04-30] MEDS: Potassium Chloride 8 MEQ TAB PO SCH (07:58)
[2017-04-30] MEDS: Enoxaparin Sodium 40 MG/0.4 ML SYRINGE SC SCH (07:58)
[2017-04-30] MEDS: Ferrous Sulfate 325 MG TAB PO SCH (07:59)
[2017-04-30] MEDS: cloNIDine 0.3 MG TAB PO SCH ×2 (07:59→21:07)
[2017-04-30] MEDS: metFORMIN 500 MG TAB PO SCH ×2 (07:59→16:48)
[2017-04-30] MEDS: Amlodipine 10 MG TAB PO SCH (07:59)
[2017-04-30] MEDS: Ketotifen Fumarate 0.025% Ophth Soln 5 ml Bottle EA EYE SCH (08:00)
--- NOTE | 2017-04-30 08:30 | RAD ---
PORTABLE UPRIGHT FRONTAL CHEST RADIOGRAPH: Date: 04-30-17 Comparison: 04-29-17 History: Ventilated patient. FINDINGS: There is a tracheostomy tube in place. There is no pneumothorax evident. There is perihilar and bibasilar interstitial opacity with pulmonary vascular congestion. Airspace di sease is suspected in bilateral perihilar regions and right lung base. The bones appear somewhat sclerotic. This may be artifactual in nature, but sclerosis on the basis of a metabolic disorder or malignancy cannot be excluded. Clinical correlation is essential. IMPRESSION: Nonspecific interstitial and alveolar opacities noted. Findings suggest infectious pneumonitis/aspira tion and/or pulmonary edema. Body habitus and portable technique limit detailed assessment. Recommend follow up PA and lateral chest imaging following treatment to document resolution. CODE T. POS: ELVIRA
--- NOTE | 2017-04-30 08:39 | PDOC.FM ---
- Subjective Subjective: Patient c/o equipment malfunction overnight. She has spoken with her [employer] company and they are sending someone to the hospital to run diagnostics on her home ventilator. Otherwise, she has no complaints. She is eating breakfast this morning. - Objective MAR Reviewed: Yes Vital Signs & Weight: Vital Signs (12 hours) Temp Pulse Resp BP Pulse Ox 04/30/17 07:59 69 148/91 H 04/30/17 07:44 94 L 04/30/17 07:41 73 26 H 94 L 04/30/17 05:19 72 184/101 H 04/30/17 04:16 72 28 H 95 04/30/17 03:00 97.6 F 04/30/17 02:07 60 04/30/17 00:12 70 04/29/17 23:12 86 185/106 H 04/29/17 23:00 97.9 F 04/29/17 22:03 86 25 H 88 L 04/29/17 21:24 186/108 H Weight Admit Weight 169.19 kg Weight 180.8 kg Most Recent Monitor Data Heart Rate from ECG 70 NIBP 162/86 NIBP BP-Mean 110 Respiration from ECG 20 SpO2 93 I&O: 04/29/17 04/30/17 05/01/17 06:59 06:59 06:59 Intake Total 2558 3804 Output Total 3315 2605 Balance -757 1199 Result Diagrams: 04/30/17 05:17 04/30/17 05:17 <Mekhi Holden - Last Filed: 04/30/17 08:35> - Objective Vital Signs & Weight: Vital Signs (12 hours) Temp Pulse Resp BP Pulse Ox 05/01/17 10:12 90 30 H 91 L 05/01/17 08:10 71 164/92 H 05/01/17 08:00 98.3 F 90 30 H 96 05/01/17 07:00 98.3 F 05/01/17 04:00 97.6 F 28 H 05/01/17 01:56 71 05/01/17 01:53 75 18 99 05/01/17 00:00 97.5 F L Weight Admit Weight 169.19 kg Weight 180.8 kg Most Recent Monitor Data Heart Rate from ECG 64 NIBP 179/100 NIBP BP-Mean 110 Respiration from ECG 6 SpO2 95 I&O: 04/30/17 05/01/17 05/02/17 06:59 06:59 06:59 Intake Total 3805 9318 240 Output Total 7718 8035 1400 Balance 1199 783 1160 Result Diagrams: 05/01/17 05:10 05/01/17 06:47 <Maria M Valdez - Last Filed: 05/01/17 10:56> Phys Exam - Physical Examination Constitutional: NAD HEENT: moist MMs Respiratory: no wheezing, no rales Cardiovascular: RRR, no significant murmur Gastrointestinal: soft, no distention Neurological: moves all 4 limbs Psychiatric: normal affect, A&O x 3 <Mekhi Holden - Last Filed: 04/30/17 08:35> Dx/Plan (1) Acute respiratory failure with hypoxia and hypercapnia Code(s): J96.01 - ACUTE RESPIRATORY FAILURE WITH HYPOXIA; J96.02 - ACUTE RESPIRATORY FAILURE WITH HYPERCAPNIA Status: Acute Plan: Patient using home ventilator and maintaining saturation. She is able to take breaks throughout the day Continue management per Pulm Continue antibiotics, nebs, steroids, and trach suctioning (2) Influenza A Code(s): J10.1 - FLU DUE TO OTH IDENT INFLUENZA VIRUS W OTH RESP MANIFEST Status: Acute Plan: Will complete 5 day course of Tamiflu CXR improved compared to yesterday Continue supportive care (3) Pneumonia Code(s): J18.9 - PNEUMONIA, UNSPECIFIED ORGANISM Status: Acute QualifierTitle: Pneumonia type: due to unspecified organism Laterality: right Plan: Continue Vanc and Levoquin Work of breathing has improved since being moved to the unit ABG pending this morning (4) DM2 (diabetes mellitus, type 2) Status: Chronic Plan: Blood sugar elevated 2/2 steroids continue 70/30 38u in morning with moderate SSI (5) Pickwickian syndrome Code(s): E66.2 - MORBID (SEVERE) OBESITY WITH ALVEOLAR HYPOVENTILATION Status : Chronic Plan: Continue home ventilator oxygen supplementation Continue trach care (6) Elevated CK Status: Acute Plan: CK improving today Down to 289, greatly improved since admission (7) Hypertension Code(s): I10 - ESSENTIAL (PRIMARY) HYPERTENSION Status: Acute Plan: Continue home meds Hydralazine PRN and labetalol PRN Pressures have been elevated overnight but have been well controlled with the addition of labetalol PRN (8) Hypothyroidism Code(s): E03.9 - HYPOTHYROIDISM, UNSPECIFIED Status: Acute Plan: Continue home synthroid dose (9) NILE (obstructive sleep apnea) Code(s): G47.33 - OBSTRUCTIVE SLEEP APNEA (ADULT) (PEDIATRIC) Status: Chronic Plan: Continue home vent - Plan Plan: Plan: -possible transfer to floor pending pulmonary recommendations -continue abx, steroids, and nebs for another 48 hours <Mekhi Holden - Last Filed: 04/30/17 08:35> Attending Addendum - Attending Addendum I personally evaluated the patient and discussed the management with Dr. Holden on 04/30/17. I agree with the History, Examination, Assessment and Plan documented above with any addition or exceptions noted below. The patient is slowly improving. she will have a PT consult today. Continue current management. Still using home vent at night but also needing it off and on during the day. <Maria M Valdez - Last Filed: 05/01/17 10:56>
[2017-04-30] MEDS: Oseltamivir 75 MG CAP PO SCH (09:07)
[2017-04-30] MEDS: Valsartan 80 MG TAB PO SCH (09:07)
--- NOTE | 2017-04-30 12:38 | PQF ---
FLAKITA WELCH JUSTIN *R [id number] [facility]-279 [id number] CLINICAL DOCUMENTATION IMPROVEMENT CLARIFICATION FORM: ICD-10 Updated PLEASE DO AN ADDENDUM TO THE PROGRESS NOTE WITH ANY DOCUMENTATION UPDATES OR ADDITIONS AND CARRY THROUGH TO DC SUMMARY. THANK YOU. DATE: 04-30-17 ATTN: DR. MINGO CHAVEZ Please exercise your independent, professional judgment in responding to the clarification form. Clinical indicators are provided on the bottom of this form for your review ACUTE RESPIRATORY FAILURE WITH HYPOXIA AND HYPERCAPNIA [ ] Present on admission: [ x ] Yes [ ] No [ ] Unable to determine [ ] Other diagnosis: Coding guidelines require hospitals to identify whether a diagnosis was present on admission (POA) or not. To accurately assign the appropriate POA indicator, this information must be clearly documented within the medical record. CLINICAL INDICATORS - SIGNS / SYMPTOMS / LABS Documentation of: 04-30 ATTENDING PN: ACUTE RESPIRATORY FAILURE W/ HYPOXIA AND HYPERCAPNIA ER: 98-99% ON NRB - NO RESP DISTRESS AT THIS TIME - WEARS O2 AT HOME RISK FACTORS: H&P: WEARS O2 AT HOME INDLUENZA A PNEUMONIA TREATMENT: CPOE - PT HAS TRACHEOSTOMY - MODE OF OXYGEN SIMV THANK YOU, VERÓNICA (This form is maintained as a part of the permanent medical record) 2014 [employer], [employer]. All Rights Reserved Verónica Bonner RN, BS [email or web address] [facility]
--- NOTE | 2017-04-30 23:38 | PRG ---
DATE OF SERVICE: 04/30/2017 SUBJECTIVE: Ms. Peterson has no new complaints. OBJECTIVE: VITAL SIGNS: She is afebrile, heart rate is in the 70s, blood pressure 164/90, respiratory rate 20. Oximetry is 98%. She still has tight wheezes diffusely. HEART: Regular rhythm. ABDOMEN: Soft. She was not wearing humidity on her tracheostomy today. I have explained to her that this is imperative that she humidify her oxygen as tracheobronchial drying will aggravate her problems with secretion clearance and bronchospasm. LABORATORY DATA: White count 6.2, hemoglobin 10.9, platelets 264. Electrolytes were unremarkable. IMPRESSION: 1. Respiratory failure, acute on chronic. 2. Asthma. 3. Bronchitis. PLAN: Continue supportive care.We are trying to get her back to where she is only nocturnally ventilated. If She reaches that point she could be discharged home hopefully. MARTHA
[2017-04-30] MEDS: Zolpidem Tartrate 5 MG TAB PO PRN (23:58)
[2017-05-01 00:37] LABS: Vancomycin, Trough 19.7 ug/mL
[2017-05-01] MEDS: Sodium Chloride 0.9% 1,000 ML IV SCH ×4 (02:08→21:09)
[2017-05-01] MEDS: Levothyroxine Sodium 125 MCG TAB PO SCH (05:06)
[2017-05-01] MEDS: HumaLOG 300 UNITS/3 ML VIAL SC PRN ×2 (05:07→11:37)
[2017-05-01 07:03] LABS: Chloride 107 mmol/L (98-107); Potassium 4.5 mmol/L (3.5-5.1); Sodium 141 mmol/L (136-145)
[2017-05-01 07:04] LABS: Calcium 8.8 mg/dL (7.8-10.44); Glucose 213 mg/dL (80-115)
[2017-05-01 07:06] LABS: Anion Gap 12 mmol/L (10-20); Carbon Dioxide 27 mmol/L (23-31)
[2017-05-01 07:08] LABS: BUN (Urea Nitrogen) 18 mg/dL (9.8-20.1); Calc. Creatinine Clearance 183 mL/min (70-130); Estimated GFR-MDRD 76
[2017-05-01 07:10] LABS: CK (CPK) 168 U/L (29-168)
[2017-05-01 07:22] LABS: Band 4 % (5-11); Hemoglobin 10.8 g/dL (12.0-16.0); Hypochromia SLIGHT = 6-15 cells (100X) (0-5/hpf); Lymphocytes 20 % (21-51); MDiff Complete? YES; Mean Corpuscular HGB CONC 29.4 g/dL (32.0-36.0); Mean Corpuscular Hemoglobin 24.9 pg (27.0-31.0); Mean Corpuscular Volume 84.8 fl (81.0-99.0); Mean Platelet Volume 9.8 fL (7.4-10.4); Metamyelocyte 1 % (0-0); Monocytes 3 % (0-10); Neutrophil 72 % (42-75); PLT Morphology Comment Appears Adequate; Platelet Count 213 thou/uL (130-400); Polychromasia SLIGHT = 2-3 cells (100X) (0-2/hpf); RBC Distribution Width 16.1 % (11.5-14.5); Red Blood Cell (RBC) Count 4.32 mill/uL (4.20-5.40); White Blood Cell (WBC) Count 7.2 thou/uL (4.8-10.8)
--- NOTE | 2017-05-01 07:34 | PDOC.FM ---
- Subjective Subjective: No acute events overnight. No issues per nursing. Patient feeling much better this morning. Was on trach collar until midnight, put on home ventilator at that time. C/o constipation, did not have a BM yesterday. - Objective MAR Reviewed: Yes Vital Signs & Weight: Vital Signs (12 hours) Temp Pulse Resp BP Pulse Ox 05/01/17 04:00 97.6 F 28 H 05/01/17 01:56 71 05/01/17 01:53 75 18 99 05/01/17 00:00 97.5 F L 04/30/17 22:11 77 20 98 04/30/17 21:07 164/92 H 04/30/17 20:00 97.9 F 74 14 97 Weight Admit Weight 169.19 kg Weight 180.8 kg Most Recent Monitor Data Heart Rate from ECG 63 NIBP 157/94 NIBP BP-Mean 108 Respiration from ECG 15 SpO2 97 I&O: 04/30/17 05/01/17 05/02/17 06:59 06:59 06:59 Intake Total 3804 3538 Output Total 2605 2825 Balance 1199 713 Result Diagrams: 05/01/17 05:10 05/01/17 06:47 <Mekhi Holden - Last Filed: 05/01/17 07:32> - Objective Vital Signs & Weight: Vital Signs (12 hours) Temp Pulse Resp BP Pulse Ox 05/01/17 10:12 90 30 H 91 L 05/01/17 08:10 71 164/92 H 05/01/17 08:00 98.3 F 90 30 H 96 05/01/17 07:00 98.3 F 05/01/17 04:00 97.6 F 28 H 05/01/17 01:56 71 05/01/17 01:53 75 18 99 05/01/17 00:00 97.5 F L Weight Admit Weight 169.19 kg Weight 180.8 kg Most Recent Monitor Data Heart Rate from ECG 64 NIBP 179/100 NIBP BP-Mean 110 Respiration from ECG 6 SpO2 95 I&O: 04/30/17 05/01/17 05/02/17 06:59 06:59 06:59 Intake Total 3804 3538 240 Output Total 2605 2825 1400 Balance 1199 713 -1160 Result Diagrams: 05/01/17 05:10 05/01/17 06:47 <Maria M Valdez - Last Filed: 05/01/17 11:23> Phys Exam - Physical Examination Constitutional: NAD HEENT: moist MMs mild expiratory wheezing bilaterally Cardiovascular: RRR, no significant murmur Gastrointestinal: soft, no distention Neurological: moves all 4 limbs Psychiatric: normal affect, A&O x 3 <Mekhi Holden - Last Filed: 05/01/17 07:32> Dx/Plan (1) Acute respiratory failure with hypoxia and hypercapnia Code(s): J96.01 - ACUTE RESPIRATORY FAILURE WITH HYPOXIA; J96.02 - ACUTE RESPIRATORY FAILURE WITH HYPERCAPNIA Status: Acute Plan: Patient attempting to wean herself off home ventilator during daytime hours as respiratory status improves Continue management per Pulm Continue Levaquin, nebs, steroids, and trach suctioning Patient will try to take extended breaks from vent today (2) Influenza A Code(s): J10.1 - FLU DUE TO OTH IDENT INFLUENZA VIRUS W OTH RESP MANIFEST Status: Acute Plan: Tamiflu completed Continue supportive care (3) Pneumonia Code(s): J18.9 - PNEUMONIA, UNSPECIFIED ORGANISM Status: Acute QualifierTitle: Pneumonia type: due to unspecified organism Laterality: right Plan: Continue Levoquin Work of breathing continues to improve since being moved to the unit, patient feeling much better this morning (4) DM2 (diabetes mellitus, type 2) Status: Chronic Plan: Blood sugar elevated 2/2 steroids continue 70/30 38u in morning with moderate SSI (5) Pickwickian syndrome Code(s): E66.2 - MORBID (SEVERE) OBESITY WITH ALVEOLAR HYPOVENTILATION Status : Chronic Plan: Continue home ventilator oxygen supplementation Continue trach care (6) Elevated CK Status: Resolved Plan: CK improving daily, no longer elevated Down to 168, greatly improved since admission (7) Hypertension Code(s): I10 - ESSENTIAL (PRIMARY) HYPERTENSION Status: Acute Plan: Continue home meds Hydralazine PRN and labetalol PRN Pressures stable overnight- well controlled with the addition of labetalol PRN (8) Hypothyroidism Code(s): E03.9 - HYPOTHYROIDISM, UNSPECIFIED Status: Acute Plan: Continue home synthroid dose (9) NILE (obstructive sleep apnea) Code(s): G47.33 - OBSTRUCTIVE SLEEP APNEA (ADULT) (PEDIATRIC) Status: Chronic Plan: Continue home vent - Plan Plan: Plan: -continue weaning vent during daytime until patient only requiring it at night <Mekhi Holden - Last Filed: 05/01/17 07:32> Attending Addendum - Attending Addendum I personally evaluated the patient and discussed the management with Dr. Holden on 05/01/17. I agree with the History, Examination, Assessment and Plan documented above with any addition or exceptions noted below. The patient's primary complaint this morning is constipation. She has received an enema. She has multiple medications for constipation and will adjust regimen as needed. Pt is improving from a respiratory standpoint. <Maria M Valdez - Last Filed: 05/01/17 11:23>
[2017-05-01] MEDS: Enoxaparin Sodium 40 MG/0.4 ML SYRINGE SC SCH (08:09)
[2017-05-01] MEDS: metFORMIN 500 MG TAB PO SCH ×2 (08:10→16:56)
[2017-05-01] MEDS: cloNIDine 0.3 MG TAB PO SCH ×2 (08:10→21:08)
[2017-05-01] MEDS: Amlodipine 10 MG TAB PO SCH (08:10)
[2017-05-01] MEDS: Clopidogrel Bisulfate 75 MG TAB PO SCH (08:10)
[2017-05-01] MEDS: Insulin NPH/Reg Insulin Hm 300 UNITS/3 ML VIAL SC SCH (08:10)
[2017-05-01] MEDS: Ferrous Sulfate 325 MG TAB PO SCH (08:10)
[2017-05-01] MEDS: Potassium Chloride 8 MEQ TAB PO SCH (08:11)
[2017-05-01] MEDS: Nitrofurantoin Monohyd/M-Cryst 100 MG CAP PO SCH ×2 (08:11→21:08)
[2017-05-01] MEDS: Ketotifen Fumarate 0.025% Ophth Soln 5 ml Bottle EA EYE SCH (08:11)
[2017-05-01] MEDS: Valsartan 80 MG TAB PO SCH (08:20)
--- NOTE | 2017-05-01 08:45 | RAD ---
CHEST ONE VIEW: History: Respiratory distress. Ventilated patient. Comparison: 04-30-17 FINDINGS: There is rightward rotation of the patient. There is persistent cardiomegaly. Pulmonary vessels kamar nue to be prominent. There are patchy interstitial and alveolar opacities. There is no pleural effusi on or pneumothorax. Tracheostomy is re-demonstrated. IMPRESSION: Stable interstitial and alveolar opacities. POS: [facility]
[2017-05-01 10:52] VITALS: BMI 72.8
--- NOTE | 2017-05-01 19:33 | PRG ---
DATE OF SERVICE: 05/01/2017 SUBJECTIVE: Ms. Peterson is clinically unchanged. She complains that she needs to have a bowel movement. OBJECTIVE: VITAL SIGNS: Heart rate 50, respiratory rate is 15, oximetry is 90, blood pressure 143/76. She did not have her trach humidity on again, so this was replaced. LUNGS: Remarkable for improved wheezes. HEART: Regular rhythm. ABDOMEN: Soft. LABORATORY DATA: White count 7.2, hemoglobin 10.8, platelets 213,000. Electrolytes are normal. IMPRESSION: 1. Acute on chronic respiratory failure. 2. Asthma. 3. Pneumonia. Probably she can move down to IMU in the morning. MARTHA
[2017-05-01] MEDS: Zolpidem Tartrate 5 MG TAB PO PRN (23:29)
[2017-05-02] MEDS: hydrALAZINE 20 MG/ML VIAL SLOW IVP PRN ×2 (02:47→17:07)
[2017-05-02] MEDS: Levothyroxine Sodium 125 MCG TAB PO SCH (05:37)
[2017-05-02] MEDS: HumaLOG 300 UNITS/3 ML VIAL SC PRN ×3 (05:47→17:02)
[2017-05-02 06:49] LABS: Chloride 104 mmol/L (98-107); Potassium 4.6 mmol/L (3.5-5.1); Sodium 141 mmol/L (136-145)
[2017-05-02 06:49] LABS: Band 3 % (5-11); Hemoglobin 10.9 g/dL (12.0-16.0); Hypochromia SLIGHT = 6-15 cells (100X) (0-5/hpf); Lymphocytes 9 % (21-51); MDiff Complete? YES; Mean Corpuscular Hemoglobin 26.2 pg (27.0-31.0); Mean Corpuscular Volume 84.5 fl (81.0-99.0); Mean Platelet Volume 9.9 fL (7.4-10.4); Metamyelocyte 1 % (0-0); Monocytes 4 % (0-10); Neutrophil 82 % (42-75); PLT Morphology Comment Appears Adequate; Platelet Count 259 thou/uL (130-400); Polychromasia SLIGHT = 2-3 cells (100X) (0-2/hpf); RBC Distribution Width 15.6 % (11.5-14.5); Reactive Lymphocytes 1 % (0-10); Red Blood Cell (RBC) Count 4.17 mill/uL (4.20-5.40); Tear Drops SLIGHT = 2-5 cells (100X) (0-1/hpf); White Blood Cell (WBC) Count 8.7 thou/uL (4.8-10.8)
[2017-05-02 06:50] LABS: Calcium 8.9 mg/dL (7.8-10.44); Glucose 220 mg/dL (80-115)
[2017-05-02 06:52] LABS: Anion Gap 16 mmol/L (10-20); Carbon Dioxide 26 mmol/L (23-31)
[2017-05-02 06:53] LABS: Calc. Creatinine Clearance 198 mL/min (70-130); Estimated GFR-MDRD 83
[2017-05-02 06:54] LABS: BUN (Urea Nitrogen) 20 mg/dL (9.8-20.1)
[2017-05-02 06:56] LABS: CK (CPK) 130 U/L (29-168)
[2017-05-02] MEDS: Sodium Chloride 0.9% 1,000 ML IV SCH ×3 (08:30→22:01)
--- NOTE | 2017-05-02 09:00 | RAD ---
AP VIEW OF THE CHEST: INDICATION: Intubation. COMPARISON: Prior study dated 05/01/17 at 5:55 a.m. FINDINGS: The patient is heavily rotated to the right limiting exam. Tracheostomy tube is unchanged in positio n. No definite confluent airspace opacity or pleural effusion is evident. There is a suggestion of cardiomegaly and pulmonary vascular congestion which is stable. No definite pneumothorax is evident. IMPRESSION: Stable exam. POS: [facility]
[2017-05-02] MEDS: Nitrofurantoin Monohyd/M-Cryst 100 MG CAP PO SCH ×2 (09:29→21:30)
[2017-05-02] MEDS: Ketotifen Fumarate 0.025% Ophth Soln 5 ml Bottle EA EYE SCH (09:29)
[2017-05-02] MEDS: metFORMIN 500 MG TAB PO SCH ×2 (09:30→16:40)
[2017-05-02] MEDS: Enoxaparin Sodium 40 MG/0.4 ML SYRINGE SC SCH (09:30)
[2017-05-02] MEDS: Clopidogrel Bisulfate 75 MG TAB PO SCH (09:31)
[2017-05-02] MEDS: Amlodipine 10 MG TAB PO SCH (09:31)
[2017-05-02] MEDS: cloNIDine 0.3 MG TAB PO SCH ×2 (09:31→21:00)
[2017-05-02] MEDS: Ferrous Sulfate 325 MG TAB PO SCH (09:32)
[2017-05-02] MEDS: Insulin NPH/Reg Insulin Hm 300 UNITS/3 ML VIAL SC SCH (09:33)
[2017-05-02] MEDS: Valsartan 80 MG TAB PO SCH (09:40)
--- NOTE | 2017-05-02 10:58 | PDOC.FM ---
- Subjective Subjective: Patient reports doing very well overnight. She is eating and sleeping normally. Still c/o no bowel movement despite increased bowel regimen. - Objective MAR Reviewed: Yes Vital Signs & Weight: Vital Signs (12 hours) Temp Pulse Resp BP Pulse Ox 05/02/17 09:31 49 L 171/86 H 05/02/17 08:36 63 15 97 05/02/17 08:00 98.2 F 05/02/17 04:00 98.0 F 05/02/17 02:47 41 L 181/98 H 05/02/17 02:39 75 05/02/17 00:00 98.2 F 05/01/17 23:07 53 L 19 97 Weight Admit Weight 169.19 kg Weight 180.6 kg Most Recent Monitor Data Heart Rate from ECG 78 NIBP 155/86 NIBP BP-Mean 107 Respiration from ECG 21 SpO2 96 I&O: 05/01/17 05/02/17 05/03/17 06:59 06:59 06:59 Intake Total 3538 4261 Output Total 2825 5315 350 Balance 056 -9977 -421 Result Diagrams: 05/02/17 04:30 05/02/17 06:30 <Mekhi Holden - Last Filed: 05/02/17 10:55> - Objective Vital Signs & Weight: Vital Signs (12 hours) Temp Pulse Resp BP Pulse Ox 05/02/17 09:31 49 L 171/86 H 05/02/17 08:36 63 15 97 05/02/17 08:00 98.2 F 05/02/17 04:00 98.0 F 05/02/17 02:47 41 L 181/98 H 05/02/17 02:39 75 05/02/17 00:00 98.2 F 05/01/17 23:07 53 L 19 97 Weight Admit Weight 169.19 kg Weight 180.6 kg Most Recent Monitor Data Heart Rate from ECG 78 NIBP 155/86 NIBP BP-Mean 107 Respiration from ECG 21 SpO2 96 I&O: 05/01/17 05/02/17 05/03/17 06:59 06:59 06:59 Intake Total 3538 4261 Output Total 2825 5315 350 Balance 713 1054 -795 Result Diagrams: 05/02/17 04:30 05/02/17 06:30 <Maria M Valdez - Last Filed: 05/02/17 11:06> Phys Exam - Physical Examination Constitutional: NAD HEENT: moist MMs Respiratory: no rales, no rhonchi Cardiovascular: RRR, no significant murmur Gastrointestinal: soft, no distention Neurological: moves all 4 limbs Psychiatric: normal affect, A&O x 3 <Mekhi Holden - Last Filed: 05/02/17 10:55> Dx/Plan (1) Acute respiratory failure with hypoxia and hypercapnia Code(s): J96.01 - ACUTE RESPIRATORY FAILURE WITH HYPOXIA; J96.02 - ACUTE RESPIRATORY FAILURE WITH HYPERCAPNIA Status: Acute Plan: Patient attempting to wean herself off home ventilator during daytime hours as respiratory status improves Continue management per Pulm Continue Levaquin, nebs, steroids, and trach suctioning Patient will try to take extended breaks from vent today (2) Influenza A Code(s): J10.1 - FLU DUE TO OTH IDENT INFLUENZA VIRUS W OTH RESP MANIFEST Status: Resolved Plan: Tamiflu completed Continue supportive care (3) Pneumonia Code(s): J18.9 - PNEUMONIA, UNSPECIFIED ORGANISM Status: Acute QualifierTitle: Pneumonia type: due to unspecified organism Laterality: right Plan: Continue Levoquin Work of breathing continues to improve since being moved to the unit, patient feeling much better this morning (4) DM2 (diabetes mellitus, type 2) Status: Chronic Plan: Blood sugar elevated 2/2 steroids continue 70/30 38u in morning with moderate SSI (5) Pickwickian syndrome Code(s): E66.2 - MORBID (SEVERE) OBESITY WITH ALVEOLAR HYPOVENTILATION Status : Chronic Plan: Continue home ventilator oxygen supplementation Continue trach care (6) Elevated CK Status: Resolved Plan: CK improving daily, no longer elevated Down to 130, greatly improved since admission (7) Hypertension Code(s): I10 - ESSENTIAL (PRIMARY) HYPERTENSION Status: Acute Plan: Continue home meds Hydralazine PRN and labetalol PRN Pressures stable overnight- well controlled with the addition of labetalol PRN (8) Hypothyroidism Code(s): E03.9 - HYPOTHYROIDISM, UNSPECIFIED Status: Acute Plan: Continue home synthroid dose (9) NILE (obstructive sleep apnea) Code(s): G47.33 - OBSTRUCTIVE SLEEP APNEA (ADULT) (PEDIATRIC) Status: Chronic Plan: Continue home vent - Plan Plan: Plan: -continue working towards only needing vent during sleep -d/c once stable from Pulm standpoint <Mekhi Holden - Last Filed: 05/02/17 10:55> Attending Addendum - Attending Addendum I personally evaluated the patient and discussed the management with Dr. Holden. I agree with the History, Examination, Assessment and Plan documented above with any addition or exceptions noted below. The patient continues to slowly improve. Will continue adjusting bowel regimen. She can transfer to [facility]. <Maria M Valdez - Last Filed: 05/02/17 11:06>
[2017-05-02] MEDS ORDERED: Polyethylene Glycol 3350 17 GM Packet PO SCH (11:15)
[2017-05-02] MEDS: Potassium Chloride 8 MEQ TAB PO SCH (11:42)
[2017-05-02] MEDS: Polyethylene Glycol 3350 17 GM Packet PO SCH (12:49)
--- NOTE | 2017-05-02 18:08 | PRG ---
DATE OF SERVICE: 05/02/2017 SUBJECTIVE: Ms. Peterson states she is doing better. She is still wheezing. She also is still inter mittently quite hypertensive, although forearm cuffs may not be accurate in her given her size. OBJECTIVE: VITAL SIGNS: Heart rate 62, respiratory rate in the teens. LUNGS: Still remarkable for mild wheezes. HEART: Regular rhythm. ABDOMEN: Soft. LABORATORY DATA: White count 8.7, hemoglobin 10.9, platelets 259,000. Electrolytes normal. IMPRESSION: 1. Respiratory failure associated with status asthmaticus. 2. Pneumonia, postviral. Chest radiograph does not clearly show a clearcut infiltrates and because of her size, it is hard to get a good radiograph on her, so I am not 100% convinced she has pneumonia. I think she can be transferred to step down unit in anticipation of going home in 2 to 3 days with sl ow steroid taper and completion of her antimicrobial therapy.
[2017-05-02] MEDS: Zolpidem Tartrate 5 MG TAB PO PRN (23:30)
[2017-05-03] MEDS: hydrALAZINE 20 MG/ML VIAL SLOW IVP PRN (01:15)
[2017-05-03] MEDS: Levothyroxine Sodium 125 MCG TAB PO SCH ×2 (05:56→08:59)
[2017-05-03] MEDS: Sodium Chloride 0.9% 1,000 ML IV SCH (05:58)
[2017-05-03] MEDS: HumaLOG 300 UNITS/3 ML VIAL SC PRN ×4 (06:13→21:31)
[2017-05-03 06:33] LABS: Band 1 % (5-11); Hemoglobin 10.8 g/dL (12.0-16.0); Lymphocytes 8 % (21-51); MDiff Complete? YES; Mean Corpuscular HGB CONC 30.9 g/dL (32.0-36.0); Mean Corpuscular Hemoglobin 25.9 pg (27.0-31.0); Mean Platelet Volume 8.2 fL (7.4-10.4); Metamyelocyte 1 % (0-0); Monocytes 7 % (0-10); Neutrophil 83 % (42-75); PLT Morphology Comment Appears Adequate; Platelet Count 303 thou/uL (130-400); RBC Distribution Width 15.4 % (11.5-14.5); Red Blood Cell (RBC) Count 4.16 mill/uL (4.20-5.40); White Blood Cell (WBC) Count 9.5 thou/uL (4.8-10.8)
[2017-05-03 06:39] LABS: Anion Gap 10 mmol/L (10-20); BUN (Urea Nitrogen) 23 mg/dL (9.8-20.1); CK (CPK) 130 U/L (29-168); Calc. Creatinine Clearance 199 mL/min (70-130); Calcium 8.8 mg/dL (7.8-10.44); Carbon Dioxide 31 mmol/L (23-31); Chloride 104 mmol/L (98-107); Estimated GFR-MDRD 84; Glucose 202 mg/dL (80-115); Potassium 4.4 mmol/L (3.5-5.1); Sodium 141 mmol/L (136-145)
--- NOTE | 2017-05-03 07:47 | PDOC.FM ---
- Subjective Subjective: Patient resting comfortably this morning on home vent. Elevated pressures overnight, per nursing. PRN Hydralazine given. No acute events overnight. - Objective MAR Reviewed: Yes Vital Signs & Weight: Vital Signs (12 hours) Temp Pulse Resp BP Pulse Ox 05/03/17 07:35 60 15 98 05/03/17 04:00 99.4 F 05/03/17 02:00 62 161/97 H 05/03/17 01:15 74 185/102 H 05/03/17 00:00 97.6 F 05/02/17 22:14 85 25 H 96 05/02/17 21:00 177/104 H 05/02/17 20:00 98.4 F 85 25 H 97 Weight Admit Weight 169.19 kg Weight 179.7 kg Most Recent Monitor Data Heart Rate from ECG 53 NIBP 172/95 NIBP BP-Mean 109 Respiration from ECG 0 SpO2 90 I&O: 05/02/17 05/03/17 05/04/17 06:59 06:59 06:59 Intake Total 4261 4196 Output Total 5315 3020 Balance -1054 1176 Result Diagrams: 05/03/17 06:00 05/03/17 06:00 <Mekhi Holden - Last Filed: 05/03/17 07:45> - Objective Vital Signs & Weight: Vital Signs (12 hours) Temp Pulse Resp BP Pulse Ox 05/03/17 08:56 97 185/97 H 05/03/17 08:55 185/97 H 05/03/17 07:35 60 15 98 05/03/17 07:01 98.9 F 71 17 99 05/03/17 04:00 99.4 F 05/03/17 02:00 62 161/97 H 05/03/17 01:15 74 185/102 H 05/03/17 00:00 97.6 F 05/02/17 22:14 85 25 H 96 Weight Admit Weight 169.19 kg Weight 179.7 kg Most Recent Monitor Data Heart Rate from ECG 53 NIBP 172/95 NIBP BP-Mean 109 Respiration from ECG 0 SpO2 90 I&O: 05/02/17 05/03/17 05/04/17 06:59 06:59 06:59 Intake Total 4261 4196 Output Total 5315 3020 Balance -1054 1176 Result Diagrams: 05/03/17 06:00 05/03/17 06:00 <Maria M Valdez - Last Filed: 05/03/17 09:44> Phys Exam - Physical Examination Constitutional: NAD HEENT: moist MMs Neck: supple mild wheezing bilaterally Cardiovascular: RRR, no significant murmur Gastrointestinal: soft, no distention Neurological: moves all 4 limbs Psychiatric: normal affect, A&O x 3 <Mekhi Holden - Last Filed: 05/03/17 07:45> Dx/Plan (1) Acute respiratory failure with hypoxia and hypercapnia Code(s): J96.01 - ACUTE RESPIRATORY FAILURE WITH HYPOXIA; J96.02 - ACUTE RESPIRATORY FAILURE WITH HYPERCAPNIA Status: Acute Plan: Patient attempting to wean herself off home ventilator during daytime hours as respiratory status improves; still with wheezing on exam Continue management per Pulm Continue nebs, steroids, and trach suctioning (2) Influenza A Code(s): J10.1 - FLU DUE TO OTH IDENT INFLUENZA VIRUS W OTH RESP MANIFEST Status: Resolved Plan: Tamiflu completed Continue supportive care (3) Pneumonia Code(s): J18.9 - PNEUMONIA, UNSPECIFIED ORGANISM Status: Acute QualifierTitle: Pneumonia type: due to unspecified organism Laterality: right Plan: Continue Levoquin, day #7 Patient improving daily transfer to [facility] (4) DM2 (diabetes mellitus, type 2) Status: Chronic Plan: Blood sugar elevated 2/2 steroids continue 70/30 38u in morning with moderate SSI Used 12u SSI yesterday (5) Pickwickian syndrome Code(s): E66.2 - MORBID (SEVERE) OBESITY WITH ALVEOLAR HYPOVENTILATION Status : Chronic Plan: Continue home ventilator oxygen supplementation Continue trach care (6) Hypertension Code(s): I10 - ESSENTIAL (PRIMARY) HYPERTENSION Status: Acute Plan: Continue home meds Hydralazine PRN and labetalol PRN (7) Hypothyroidism Code(s): E03.9 - HYPOTHYROIDISM, UNSPECIFIED Status: Acute Plan: Continue home synthroid dose (8) NILE (obstructive sleep apnea) Code(s): G47.33 - OBSTRUCTIVE SLEEP APNEA (ADULT) (PEDIATRIC) Status: Chronic Plan: Continue home vent - Plan Plan: Plan: -continue steroids and nebs -day #7 of abx, d/c today -possible discharge in 1-2 days <Mekhi Holden - Last Filed: 05/03/17 07:45> Attending Addendum - Attending Addendum I personally evaluated the patient and discussed the management with Dr. Holden. I agree with the History, Examination, Assessment and Plan documented above with any addition or exceptions noted below. The patient was hypertension overnight and had PRN meds ordered but they were only given once. Will adjust diovan dose. Pt is waiting on IMCU bed. Patient has had a bowel movement this morning. <Maria M Valdez - Last Filed: 05/03/17 09:44>
[2017-05-03] MEDS: cloNIDine 0.3 MG TAB PO SCH ×2 (08:55→21:28)
[2017-05-03] MEDS: Amlodipine 10 MG TAB PO SCH (08:56)
--- NOTE | 2017-05-03 08:57 | RAD ---
CHEST 1 VIEW: Date: 05/03/17 HISTORY: Ventilated patient. COMPARISON: Chest 1 view dated 05/02/17. FINDINGS: The trach tube tip is in good position. Lungs are hypoinflated. Patient rotated to right. No pneumothorax or large effusion. IMPRESSION: Similar examination of the chest. No definite intrathoracic abnormality. POS: [facility]
[2017-05-03] MEDS: metFORMIN 500 MG TAB PO SCH ×2 (08:59→17:12)
[2017-05-03] MEDS: Clopidogrel Bisulfate 75 MG TAB PO SCH (08:59)
[2017-05-03] MEDS: Insulin NPH/Reg Insulin Hm 300 UNITS/3 ML VIAL SC SCH (09:00)
[2017-05-03] MEDS: Enoxaparin Sodium 40 MG/0.4 ML SYRINGE SC SCH (09:00)
[2017-05-03] MEDS: Ketotifen Fumarate 0.025% Ophth Soln 5 ml Bottle EA EYE SCH (09:01)
[2017-05-03] MEDS: Ferrous Sulfate 325 MG TAB PO SCH (09:01)
[2017-05-03] MEDS: Polyethylene Glycol 3350 17 GM Packet PO SCH (09:02)
[2017-05-03] MEDS: Potassium Chloride 8 MEQ TAB PO SCH (09:02)
[2017-05-03] MEDS: Nitrofurantoin Monohyd/M-Cryst 100 MG CAP PO SCH ×2 (09:02→21:27)
[2017-05-03] MEDS: Valsartan 80 MG TAB PO SCH ×2 (09:08→21:26)
--- NOTE | 2017-05-03 10:44 | PRG ---
DATE OF SERVICE: 05/03/2017 Ms. Peterson has no new complaints. She is resting comfortably earlier this morning, still mechanical ly ventilated. She is stable to move out of the ICU to the IMU. PHYSICAL EXAMINATION: VITAL SIGNS: Her blood pressure is still elevated again it is unclear how accurate these forearm cuf fs are, but I suspect they are somewhat reflective of an elevated blood pressure. LUNGS: Lungs are clear. HEART: Regular rhythm. ABDOMEN: Soft. LABORATORY DATA: White count 5.5, hemoglobin 10.8, and platelets 303. Sodium 141, potassium 4.4, chloride 104, bicarb 31, BUN 23, creatinine 0.83. IMPRESSION: 1. Chronic respiratory failure on nocturnal ventilation. 2. Obesity hypoventilation. 3. Asthmatic bronchitis plus or minus pneumonia. PLAN: Transfer to the IMU. Had 1 blood culture with coag negative Staph, one wound culture was negative. I suspect this is a co ntaminant. Her steroid dosing can be decreased in my opinion. She can be treated with p.o. antibiotics at this point, in my opinion. Physical therapy is not really much for an option with her since she spends mo st of her time in bed. If she remains stable next few days she can be transferred back to her care [facility] at her home.
[2017-05-04] MEDS: Levothyroxine Sodium 125 MCG TAB PO SCH (05:38)
[2017-05-04 06:27] LABS: Anion Gap 12 mmol/L (10-20); BUN (Urea Nitrogen) 28 mg/dL (9.8-20.1); CK (CPK) 133 U/L (29-168); Calc. Creatinine Clearance 180 mL/min (70-130); Calcium 8.9 mg/dL (7.8-10.44); Carbon Dioxide 31 mmol/L (23-31); Chloride 103 mmol/L (98-107); Estimated GFR-MDRD 75; Glucose 214 mg/dL (80-115); Potassium 4.4 mmol/L (3.5-5.1); Sodium 142 mmol/L (136-145)
[2017-05-04] MEDS: HumaLOG 300 UNITS/3 ML VIAL SC PRN ×2 (06:28→15:13)
[2017-05-04 06:51] LABS: Band 1 % (5-11); Hemoglobin 10.9 g/dL (12.0-16.0); Hypochromia SLIGHT = 6-15 cells (100X) (0-5/hpf); Lymphocytes 11 % (21-51); MDiff Complete? YES; Mean Corpuscular HGB CONC 30.7 g/dL (32.0-36.0); Mean Corpuscular Volume 84.7 fl (81.0-99.0); Mean Platelet Volume 8.7 fL (7.4-10.4); Monocytes 8 % (0-10); Neutrophil 80 % (42-75); PLT Morphology Comment Appears Adequate; Platelet Count 287 thou/uL (130-400); RBC Distribution Width 15.8 % (11.5-14.5); Red Blood Cell (RBC) Count 4.18 mill/uL (4.20-5.40); White Blood Cell (WBC) Count 10.7 thou/uL (4.8-10.8)
--- NOTE | 2017-05-04 07:40 | PDOC.FM ---
- Subjective Subjective: Patient resting comfortably this morning. No acute events overnight. VSS, afebrile - Objective MAR Reviewed: Yes Vital Signs & Weight: Vital Signs (12 hours) Temp Pulse Resp BP BP Pulse Ox 05/04/17 07:00 96.3 F L 54 L 19 173/95 H 100 05/04/17 04:00 97.3 F L 47 L 18 152/76 H 94 L 05/04/17 02:28 73 16 05/04/17 00:00 97.9 F 57 L 18 168/86 H 100 05/03/17 22:20 76 22 H 05/03/17 21:28 156/74 H 05/03/17 21:25 97.9 F 57 L 18 98 05/03/17 19:51 97.8 F 70 18 174/81 H 98 Weight Admit Weight 169.19 kg Weight 179.651 kg Most Recent Monitor Data Heart Rate from ECG 79 NIBP 128/66 NIBP BP-Mean 90 Respiration from ECG 16 SpO2 95 I&O: 05/03/17 05/04/17 05/05/17 06:59 06:59 06:59 Intake Total 4196 2070 Output Total 3020 1860 Balance 1176 210 Result Diagrams: 05/04/17 05:45 05/04/17 05:45 <Mekhi Holden - Last Filed: 05/04/17 07:38> - Objective Vital Signs & Weight: Vital Signs (12 hours) Temp Pulse Resp BP BP Pulse Ox 05/04/17 11:50 86 21 H 96 05/04/17 11:00 96.8 F L 56 L 19 145/76 H 100 05/04/17 08:56 74 162/83 H 05/04/17 08:48 78 19 05/04/17 08:00 96.3 F L 54 L 19 100 05/04/17 07:00 96.3 F L 54 L 19 173/95 H 100 05/04/17 04:00 97.3 F L 47 L 18 152/76 H 94 L 05/04/17 02:28 73 16 Weight Admit Weight 169.19 kg Weight 179.651 kg Most Recent Monitor Data Heart Rate from ECG 79 NIBP 128/66 NIBP BP-Mean 90 Respiration from ECG 16 SpO2 95 I&O: 05/03/17 05/04/17 05/05/17 06:59 06:59 06:59 Intake Total 4196 2070 Output Total 3020 1860 Balance 1176 210 Result Diagrams: 05/04/17 05:45 05/04/17 05:45 <Maria M Valdez - Last Filed: 05/04/17 14:23> Phys Exam - Physical Examination Constitutional: NAD HEENT: moist MMs Respiratory: no wheezing, no rales Cardiovascular: RRR, no significant murmur Gastrointestinal: soft, no distention Neurological: moves all 4 limbs Psychiatric: normal affect, A&O x 3 <Mekhi Holden - Last Filed: 05/04/17 07:38> Dx/Plan (1) Acute respiratory failure with hypoxia and hypercapnia Code(s): J96.01 - ACUTE RESPIRATORY FAILURE WITH HYPOXIA; J96.02 - ACUTE RESPIRATORY FAILURE WITH HYPERCAPNIA Status: Acute Plan: Patient attempting to wean herself off home ventilator during daytime hours as respiratory status improves Continue management per Pulm Continue nebs, steroids, and trach suctioning -decrease steroids -transition to PO abx (2) Influenza A Code(s): J10.1 - FLU DUE TO OTH IDENT INFLUENZA VIRUS W OTH RESP MANIFEST Status: Resolved Plan: Tamiflu completed Continue supportive care (3) Pneumonia Code(s): J18.9 - PNEUMONIA, UNSPECIFIED ORGANISM Status: Acute QualifierTitle: Pneumonia type: due to unspecified organism Laterality: right Plan: Continue Levoquin, day #8 Patient improving daily (4) DM2 (diabetes mellitus, type 2) Status: Chronic Plan: Blood sugar elevated 2/2 steroids continue 70/30 38u in morning with moderate SSI Used 6u SSI yesterday (5) Pickwickian syndrome Code(s): E66.2 - MORBID (SEVERE) OBESITY WITH ALVEOLAR HYPOVENTILATION Status : Chronic Plan: Continue home ventilator oxygen supplementation Continue trach care (6) Hypertension Code(s): I10 - ESSENTIAL (PRIMARY) HYPERTENSION Status: Acute Plan: Continue home meds Hydralazine PRN and labetalol PRN (7) Hypothyroidism Code(s): E03.9 - HYPOTHYROIDISM, UNSPECIFIED Status: Acute Plan: Continue home synthroid dose (8) NILE (obstructive sleep apnea) Code(s): G47.33 - OBSTRUCTIVE SLEEP APNEA (ADULT) (PEDIATRIC) Status: Chronic Plan: Continue home vent - Plan Plan: Plan: -monitor pressures and blood sugar- no need for change in treatment at this time -steroids have been decreased and she is now on PO abx in anticipation of discharge per Pulm recommendation <Mekhi Holden - Last Filed: 05/04/17 07:38> Attending Addendum - Attending Addendum I personally evaluated the patient and discussed the management with Dr. Holden. I agree with the History, Examination, Assessment and Plan documented above with any addition or exceptions noted below. The patient continues to improve. BP meds increased yesterday and need time to work. Continue supportive care. <Maria M Valdez - Last Filed: 05/04/17 14:23>
--- NOTE | 2017-05-04 08:14 | RAD ---
CHEST 1 VIEW: Date: 05/04/17 HISTORY: Ventilated patient. COMPARISON: Chest 1 view from prior day. FINDINGS: Tracheostomy tube is similar. Patient is rotated to the right. Lungs are hypoinflated. Left basilar a ir space opacity is present. IMPRESSION: Left basilar air space opacity may reflect atelectasis or infection. Similar exam. POS: [facility]
[2017-05-04] MEDS: Insulin NPH/Reg Insulin Hm 300 UNITS/3 ML VIAL SC SCH (08:53)
[2017-05-04] MEDS: Ketotifen Fumarate 0.025% Ophth Soln 5 ml Bottle EA EYE SCH (08:53)
[2017-05-04] MEDS: Enoxaparin Sodium 40 MG/0.4 ML SYRINGE SC SCH (08:54)
[2017-05-04] MEDS: Valsartan 80 MG TAB PO SCH ×2 (08:54→20:09)
[2017-05-04] MEDS: metFORMIN 500 MG TAB PO SCH ×2 (08:56→15:11)
[2017-05-04] MEDS: cloNIDine 0.3 MG TAB PO SCH ×2 (08:56→20:09)
[2017-05-04] MEDS: Clopidogrel Bisulfate 75 MG TAB PO SCH (08:56)
[2017-05-04] MEDS: Amlodipine 10 MG TAB PO SCH (08:56)
[2017-05-04] MEDS: Ferrous Sulfate 325 MG TAB PO SCH (08:58)
[2017-05-04] MEDS: Potassium Chloride 8 MEQ TAB PO SCH (08:58)
[2017-05-04] MEDS: Polyethylene Glycol 3350 17 GM Packet PO SCH (08:59)
[2017-05-04] MEDS: Nitrofurantoin Monohyd/M-Cryst 100 MG CAP PO SCH ×2 (08:59→20:09)
--- NOTE | 2017-05-04 12:29 | PRG ---
DATE OF SERVICE: 05/04/2017 SUBJECTIVE: The patient is doing better. She is using her BiPAP well at night. PHYSICAL EXAMINATION: VITAL SIGNS: Temperature 96.3, pulse 74, blood pressure 160/83, O2 sat 100% on 5 liters. HEENT: Unremarkable. NECK: No JVD. LUNGS: Clear with no wheezing. CARDIAC: S1, S2 regular. ABDOMEN: Soft, obese, nontender. EXTREMITIES: No edema. LABORATORY DATA AND IMAGING DATA: White blood cell count 10.7, hematocrit 35.4, platelet count 287. Sodium 142, potassium 4.4, BUN 28, creatinine 0.9, glucose 214. Chest x-ray demonstrates midline po sition tracheostomy with cardiomegaly and fairly clear lung sánchez. ASSESSMENT: 1. Chronic respiratory failure requiring nocturnal ventilation. 2. Obesity hypoventilation syndrome. 3. Asthmatic bronchitis. PLAN: 1. Increase activity as tolerated. 2. She has been switched to oral antibiotic medication. I would think she can probably go home by t omorrow or Saturday at the latest.
[2017-05-05] MEDS ORDERED: Zolpidem Tartrate 5 MG TAB PO PRN (00:28)
[2017-05-05] MEDS: HumaLOG 300 UNITS/3 ML VIAL SC PRN (06:27)
[2017-05-05] MEDS: Levothyroxine Sodium 125 MCG TAB PO SCH (06:28)
[2017-05-05 06:55] LABS: Band 4 % (5-11); Hemoglobin 10.5 g/dL (12.0-16.0); Lymphocytes 10 % (21-51); MDiff Complete? YES; Mean Corpuscular HGB CONC 30.9 g/dL (32.0-36.0); Mean Corpuscular Hemoglobin 26.2 pg (27.0-31.0); Mean Corpuscular Volume 84.9 fl (81.0-99.0); Mean Platelet Volume 8.5 fL (7.4-10.4); Metamyelocyte 1 % (0-0); Monocytes 4 % (0-10); Neutrophil 81 % (42-75); PLT Morphology Comment Appears Adequate; Platelet Count 335 thou/uL (130-400); White Blood Cell (WBC) Count 9.4 thou/uL (4.8-10.8)
[2017-05-05 07:03] LABS: Anion Gap 11 mmol/L (10-20); BUN (Urea Nitrogen) 28 mg/dL (9.8-20.1); CK (CPK) 107 U/L (29-168); Calc. Creatinine Clearance 180 mL/min (70-130); Calcium 9.2 mg/dL (7.8-10.44); Carbon Dioxide 31 mmol/L (23-31); Chloride 101 mmol/L (98-107); Estimated GFR-MDRD 74; Glucose 225 mg/dL (80-115); Potassium 4.4 mmol/L (3.5-5.1); Sodium 139 mmol/L (136-145)
--- NOTE | 2017-05-05 07:19 | PDOC.FM ---
- Subjective Subjective: Patient doing well this morning. She did not require home ventilator yesterday and has no complaints at this time. Vital signs stable, afebrile. - Objective Vital Signs & Weight: Vital Signs (12 hours) Temp Pulse Resp BP Pulse Ox 05/05/17 04:00 98.2 F 42 L 18 163/86 H 98 05/05/17 02:16 48 L 15 97 05/05/17 02:06 45 L 20 155/83 H 98 05/05/17 00:00 98.0 F 53 L 18 159/84 H 98 05/04/17 22:17 62 20 100 05/04/17 20:09 97.2 F L 67 18 95 05/04/17 20:05 60 169/86 H 97 05/04/17 19:52 97.2 F L 67 18 172/81 H 95 Weight Admit Weight 169.19 kg Weight 181.709 kg Most Recent Monitor Data Heart Rate from ECG 79 NIBP 128/66 NIBP BP-Mean 90 Respiration from ECG 16 SpO2 95 I&O: 05/04/17 05/05/17 05/06/17 06:59 06:59 06:59 Intake Total 2070 1445 Output Total 1860 2105 Balance 210 -660 Result Diagrams: 05/05/17 06:20 05/05/17 06:20 <Mekhi Holden - Last Filed: 05/05/17 07:17> - Objective Vital Signs & Weight: Vital Signs (12 hours) Temp Pulse Resp BP BP Pulse Ox 05/05/17 11:19 58 L 19 96 05/05/17 11:05 98.3 F 58 L 22 H 159/86 H 95 05/05/17 09:11 69 162/83 H 05/05/17 08:10 96 05/05/17 08:05 69 18 95 05/05/17 07:51 98.2 F 59 L 24 H 98 05/05/17 07:40 98.2 F 59 L 24 H 167/79 H 95 05/05/17 04:00 98.2 F 42 L 18 163/86 H 98 Weight Admit Weight 169.19 kg Weight 181.709 kg Most Recent Monitor Data Heart Rate from ECG 79 NIBP 128/66 NIBP BP-Mean 90 Respiration from ECG 16 SpO2 95 I&O: 05/04/17 05/05/1705/06/18 06:59 06:59 06:59 Intake Total 2069 1445 Output Total 1859 2104 Balance 210 -660 Result Diagrams: 05/05/17 06:20 05/05/17 06:20 <José MiguelMaria M - Last Filed: 05/05/17 14:24> Phys Exam - Physical Examination Constitutional: NAD HEENT: moist MMs wheezing bilaterally-improved Cardiovascular: RRR, no significant murmur Gastrointestinal: soft, non-tender Neurological: moves all 4 limbs Psychiatric: normal affect, A&O x 3 <Mekhi Holden - Last Filed: 05/05/17 07:17> Dx/Plan (1) Acute respiratory failure with hypoxia and hypercapnia Code(s): J96.01 - ACUTE RESPIRATORY FAILURE WITH HYPOXIA; J96.02 - ACUTE RESPIRATORY FAILURE WITH HYPERCAPNIA Status: Acute Plan: Patient has weaned herself off home ventilator during daytime hours Continue management per Pulm Continue nebs, steroids, and trach suctioning -decrease steroids -continue PO abx (2) Influenza A Code(s): J10.1 - FLU DUE TO OTH IDENT INFLUENZA VIRUS W OTH RESP MANIFEST Status: Resolved Plan: Tamiflu completed Continue supportive care (3) Pneumonia Code(s): J18.9 - PNEUMONIA, UNSPECIFIED ORGANISM Status: Acute QualifierTitle: Pneumonia type: due to unspecified organism Laterality: right Plan: Continue Levoquin, day #9 Patient improving daily (4) DM2 (diabetes mellitus, type 2) Status: Chronic Plan: Blood sugar elevated 2/2 steroids continue 70/30 38u in morning with moderate SSI Used 6u SSI yesterday (5) Pickwickian syndrome Code(s): E66.2 - MORBID (SEVERE) OBESITY WITH ALVEOLAR HYPOVENTILATION Status : Chronic Plan: Continue home ventilator oxygen supplementation Continue trach care (6) Hypertension Code(s): I10 - ESSENTIAL (PRIMARY) HYPERTENSION Status: Acute Plan: Continue home meds Hydralazine PRN and labetalol PRN BP have improved after BID dosing of valsartan (7) Hypothyroidism Code(s): E03.9 - HYPOTHYROIDISM, UNSPECIFIED Status: Acute Plan: Continue home synthroid dose (8) NILE (obstructive sleep apnea) Code(s): G47.33 - OBSTRUCTIVE SLEEP APNEA (ADULT) (PEDIATRIC) Status: Chronic Plan: Continue home vent - Plan Plan: Plan: -discharge home today on oral steroids <Mekhi Holden - Last Filed: 05/05/17 07:17> Attending Addendum - Attending Addendum I personally evaluated the patient and discussed the management with Dr. Holden. I agree with the History, Examination, Assessment and Plan documented above with any addition or exceptions noted below. The patient is doing well and is cleared for discharge home. She will go home on oral prednisone taper. She expressed her appreciation for the doctors and nurses that took care of her during her hospital stay. <Maria M Valdez - Last Filed: 05/05/17 14:24>
[2017-05-05] MEDS: Ferrous Sulfate 325 MG TAB PO SCH (09:11)
[2017-05-05] MEDS: Amlodipine 10 MG TAB PO SCH (09:11)
[2017-05-05] MEDS: Valsartan 80 MG TAB PO SCH (09:11)
[2017-05-05] MEDS: metFORMIN 500 MG TAB PO SCH (09:11)
[2017-05-05] MEDS: cloNIDine 0.3 MG TAB PO SCH (09:11)
[2017-05-05] MEDS: Potassium Chloride 8 MEQ TAB PO SCH (09:11)
[2017-05-05] MEDS: Clopidogrel Bisulfate 75 MG TAB PO SCH (09:11)
[2017-05-05] MEDS: Nitrofurantoin Monohyd/M-Cryst 100 MG CAP PO SCH (09:11)
[2017-05-05] MEDS: Polyethylene Glycol 3350 17 GM Packet PO SCH (09:12)
[2017-05-05] MEDS: Ketotifen Fumarate 0.025% Ophth Soln 5 ml Bottle EA EYE SCH (09:12)
[2017-05-05] MEDS: Insulin NPH/Reg Insulin Hm 300 UNITS/3 ML VIAL SC SCH (09:13)
[2017-05-05] MEDS: Enoxaparin Sodium 40 MG/0.4 ML SYRINGE SC SCH (09:19)
--- NOTE | 2017-05-05 11:05 | PRG ---
DATE OF SERVICE: 04/29/2017 SUBJECTIVE: She is doing well, had no specific complaints and wants to go home. OBJECTIVE: VITAL SIGNS: Temperature is 98.2, pulse 69, blood pressure 162/83, and O2 sat 96%. HEENT: Unremarkable. NECK: Trach in good position. LUNGS: Fairly clear. CARDIAC: S1 and S2, regular. ABDOMEN: Soft. EXTREMITIES: No change. LABORATORY DATA: White blood cell count 9.4, hematocrit 34, platelet count 335. Sodium 138, potassi um 4.4, chloride 101, CO2 of 31, BUN 28, creatinine 0.9, glucose 225. ASSESSMENT: 1. Chronic respiratory failure requiring nocturnal ventilation. 2. Obese hypoventilation syndrome. 3. Asthmatic bronchitis. PLAN: She is cleared to go home from a pulmonary standpoint. She is well-equipped to take care of h er chronic respiratory failure at home. We will sign off. Please recall if further assistance is ne eded.
[2017-05-05 11:35] VITALS: BP 159/86; TEMP 98.3
--- NOTE | 2017-05-06 12:58 | DIS-2 ---
DATE OF ADMISSION: 04/25/2017 DATE OF DISCHARGE: 05/05/2017 RESIDENT: Mekhi Holden M.D. ADMITTING ATTENDING: Kendal Molina M.D. DISCHARGE ATTENDING: Maria M Valdez M.D. CONSULTS: Pulmonology with Dr. Del Valle. PROCEDURES: None. PRIMARY DIAGNOSES: 1. Postviral pneumonia. 2. Influenza. 3. Acute kidney injury. 4. Urinary tract infection. 5. Acute hypoxic hypercapnic respiratory failure. SECONDARY DIAGNOSES: 1. Pickwickian syndrome. 2. Diabetes type 2. 3. Hypertension. 4. Hypothyroidism. 5. Morbid obesity. DISCHARGE MEDICATIONS: 1. Insulin 70/30 units subcutaneous q.a.m. and 28 units subcutaneous at night. 2. Clonidine 0.3 mg p.o. b.i.d. 3. Macrobid 100 mg p.o. b.i.d. 4. Pataday 1 drop each eye daily. 5. Hydrochlorothiazide 25 mg p.o. q.a.m. 6. Tylenol #3, 1-2 tablets p.o. q.4 hours for pain. 7. Flexeril 10 mg p.o. q.8 hours p.r.n. for pain. 8. Isosorbide mononitrate 120 mg p.o. daily. 9. Plavix 75 mg p.o. daily. 10. Protonix 40 mg p.o. b.i.d. 11. Metformin 500 mg p.o. b.i.d. 12. Amlodipine/valsartan 10/160 mg 1 tablet p.o. daily. 13. Ferrous sulfate 325 mg p.o. daily. 14. Zolpidem 10 mg p.o. at bedtime p.r.n. 15. Benzonatate 100 mg p.o. at bedtime. 16. Synthroid 125 mcg p.o. daily. 17. Potassium chloride 8 mEq 2 tablets p.o. daily. 18. Prednisone 60 mg p.o. q.a.m. taper. 19. Valsartan 160 mg p.o. b.i.d. DISCONTINUED MEDICATIONS: 1. Levaquin. 2. Vancomycin from 04/27 to 04/30. 3. Tamiflu. HISTORY OF PRESENT ILLNESS AND HOSPITAL COURSE: A 62-year-old female initially presenting with a 5-d ay history of cough, fever, weakness and productive secretions from her tracheostomy. She has been h aving pain around her trach site. She admits to coughing, congestion and shortness of breath. She t ested positive for influenza A in the ER and was admitted and started on Tamiflu. The patient's CK w as elevated upon admission as well qualifying her for diagnosis of rhabdomyolysis. She was given IV fluid resuscitation and her CK trended down throughout her hospital admission. The patient normally wears home ventilator at night or while sleeping. This is her baseline. However, patient was requir ing respiratory support throughout the day secondary to her influenza and likely a postviral pneumoni a. Pulmonology was consulted and the patient was moved to the intensive care unit. She was put on m echanical ventilation, IV antimicrobial therapy, steroids, nebs and daily chest x-rays. The patient slowly improved on a day-to-day basis requiring less and less home ventilatory support th roughout the day. She eventually reached her baseline day before discharge where she needed to wear the home ventilator at night. Otherwise, her AURELIO and rhabdomyolysis resolved. The patient was eatin g and drinking normally on the day of discharge. DISPOSITION: Stable. DISCHARGE INSTRUCTIONS: 1. Location: Home. 2. Diet: Heart healthy. 3. Activity: As tolerated. 4. Followup: PCP in 7-10 days.
== END 2017-05-05 14:50 | disposition home or self-care (01) | DRG 207 ==
LOC: ERS 11:48 → 2NO 14:00 → CCU 04-27 09:41 → IMCU/EMU 05-03 13:05
PROVIDERS: ADMIT Family Medicine; ATTEND Family Medicine
PROC: 5A1955Z Respiratory Ventilation, Greater than 96 Consecutive Hours (ICD-10-PCS; principal; 2017-04-27)
PROC: 5A09357 Assistance with Respiratory Ventilation, Less than 24 Consecutive Hours, Continuous Positive Airway Pressure (ICD-10-PCS; 2017-05-04)
DX: J96.21 Acute and chronic respiratory failure with hypoxia (principal); J10.00 Influenza due to other identified influenza virus with unspecified type of pneumonia; N17.9 Acute kidney failure, unspecified; J45.902 Unspecified asthma with status asthmaticus; E66.2 Morbid (severe) obesity with alveolar hypoventilation; M62.82 Rhabdomyolysis; Z68.44 Body mass index [BMI] 60.0-69.9, adult; N39.0 Urinary tract infection, site not specified; Z99.81 Dependence on supplemental oxygen; Z93.0 Tracheostomy status; J96.22 Acute and chronic respiratory failure with hypercapnia; E11.9 Type 2 diabetes mellitus without complications; I10 Essential (primary) hypertension; E03.9 Hypothyroidism, unspecified; G47.33 Obstructive sleep apnea (adult) (pediatric); Z87.891 Personal history of nicotine dependence; E78.5 Hyperlipidemia, unspecified
CPT/HCPCS: 36415; 36416; 71045; 80048; 80053; 80202; 82550; 82553; 82805; 83605; 84484; 85007; 85025; 85027; 87040; 87149; 93005; 94003; 94640; 96360; 96361; G8978-GP-CN; G8979-GP-CK; J0360; J1610; J1650; J1956; J2060; J2920; J3370; J7050; J7620

== ENCOUNTER 2017-09-13 13:13 | Emergency (ER) | payer OTHER ==
[2017-09-13] MEDS ORDERED: cloNIDine 0.1 MG TAB ONE (13:43)
[2017-09-13] MEDS ORDERED: Hydrochlorothiazide 25 MG TAB PO SCH (14:00)
== END 2017-09-13 15:30 | disposition home or self-care (01) ==
LOC: ERS 13:13
DX: I10 Essential (primary) hypertension (principal); E66.9 Obesity, unspecified; E03.9 Hypothyroidism, unspecified; M10.9 Gout, unspecified; D64.9 Anemia, unspecified; E10.9 Type 1 diabetes mellitus without complications; Z87.891 Personal history of nicotine dependence; Z79.899 Other long term (current) drug therapy; Z79.4 Long term (current) use of insulin
CPT/HCPCS: 93005

== ENCOUNTER 2017-12-24 20:29 | Emergency (ER) | payer OTHER ==
[2017-12-24] MEDS ORDERED: Piperacillin/Tazobactam 3.375 GM VIAL ONE (21:27)
== END 2017-12-25 00:26 | disposition home or self-care (01) ==
LOC: ERS 20:29
DX: N39.0 Urinary tract infection, site not specified (principal); I10 Essential (primary) hypertension; E03.9 Hypothyroidism, unspecified; E11.9 Type 2 diabetes mellitus without complications; D64.9 Anemia, unspecified; Z79.899 Other long term (current) drug therapy; Z87.891 Personal history of nicotine dependence; Z79.84 Long term (current) use of oral hypoglycemic drugs
CPT/HCPCS: 94640; 96365; J2543; J7620

== ENCOUNTER 2018-02-12 11:40 | Outpatient (CLI) | payer OTHER ==
--- NOTE | 2018-03-12 17:14 | MMO ---
BILATERAL MAMMOGRAMS: DATE: 02/12/18 HISTORY: Screening mammography. COMPARISON: None available. FINDINGS: Fatty replaced tissue. Benign-appearing calcifications. No dominant mass or suspicious calcifications . The study was evaluated with the assistance of computer-aided detection. IMPRESSION: BIRADS 1: Negative Suggest routine follow-up. POS: ELVIRA
== END 2018-02-12 11:41 | disposition home or self-care (01) ==
LOC: SCSMAMMO 11:40
PROVIDERS: ATTEND Family Medicine
DX: Z12.31 Encounter for screening mammogram for malignant neoplasm of breast (principal)
CPT/HCPCS: 77067

== ENCOUNTER 2018-06-30 01:36 | Observation (INO) | payer OTHER ==
[2018-06-30] MEDS ORDERED: methylPREDNISolone Sod Succ/PF 125 MG/2 ML VIAL ONE (02:41)
[2018-06-30] MEDS ORDERED: Oseltamivir 75 MG CAP PO SCH ×2 (03:30→09:00)
--- NOTE | 2018-06-30 04:38 | PDOC.FPRHP ---
- History of Present Illness Chief Complaint: Fever History of Present Illness: Ms Peterson is a 63yo female with pmh of asthma, pickwickian syndrome with trach , NILE on CPAP at , DMII, presenting from [facility] for fever, malaise, sore throat starting Saturday morning. She has progressively felt worse which prompted her to come to ED. Endorses muscle aches, productive cough. She did not have flu shot this year and has had a sick contact her niece with fever and URI symptoms 2 weeks ago. She reports dysuria as well. Not on home O2, only wears CPAP at night. PCP: [facility] (Dr Leavtit) ED Course: Temp 101.2, WBC 16.4. No acute findings on Chest CT. Flu neg, Strep positive on throat swab. Pt low 80's on RA initially, currently requiring 3L. At OSH pt received levaquin 500mg, Vancomycin 2g, Clinda 600mg, Tylenol, and started on mIVF NS [facility]: Methylpred, Tamiflu, duoneb - Allergies/Adverse Reactions Allergies Allergy/AdvReac Type Severity Reaction Status Date / Time aspirin Allergy Verified 06/05/14 16:16 ceftriaxone sodium Allergy Verified 06/05/14 16:21 [From Rocephin] - Home Medications Medication Instructions Recorded Confirmed Type HumuLIN 70/30 [HumuLIN 70/30 Vial] 38 unit SC QAM- 06/05/14 04/25/17 History Insulin NPH Hum/Reg Insulin HM 28 unit SC QPM- 11/19/14 04/25/17 History [HumuLIN 70/30 Kwikpen] Acetaminophen With Codeine 1 - 2 tablet PO Q4HR PRN 04/25/17 04/25/17 History [Tylenol with Codeine #3] Amlodipine Besylate/Valsartan 1 tablet PO DAILY 04/25/17 04/25/17 History [Amlodipine-Valsartan 10-160 mg] Benzonatate 100 mg PO HS PRN 04/25/17 04/25/17 History Clopidogrel Bisulfate [Clopidogrel] 75 mg PO DAILY 04/25/17 04/25/17 History Clotrimazole 1% Cream [Lotrimin 1% 1 applic TOP BID PRN 04/25/17 04/25/17 History Cream] Cyclobenzaprine [Flexeril] 10 mg PO Q8H PRN 04/25/17 04/25/17 History Ferrous Sulfate 325 mg PO DAILY 04/25/17 04/25/17 History Hydrochlorothiazide 25 mg PO QAM 04/25/17 04/25/17 History Isosorbide Mononitrate [Isosorbide 120 mg PO DAILY 04/25/17 04/25/17 History Mononitrate ER] Levothyroxine Sodium [Synthroid] 125 mcg PO DAILY 04/25/17 04/25/17 History Naproxen [Naprosyn] 500 mg PO BID PRN 04/25/17 04/25/17 History Nitrofurantoin Monohyd/M-Cryst 100 mg PO BID 04/25/17 04/25/17 History [Macrobid] Olopatadine HCl [Pataday] 1 drop EA EYE DAILY 04/25/17 04/25/17 History Ondansetron [Zofran ODT] 1 - 2 tab PO Q6HR PRN 04/25/17 04/25/17 History Pantoprazole [Protonix] 40 mg PO DAILY 04/25/17 04/25/17 History Potassium Chloride 2 tab PO DAILY 04/25/17 04/25/17 History Zolpidem Tartrate 10 mg PO HS PRN 04/25/17 04/25/17 History cloNIDine HCl 0.3 mg PO BID 04/25/17 04/25/17 History metFORMIN [Glucophage] 500 mg PO BID-WM 04/25/17 04/25/17 History Valsartan [Diovan] 160 mg PO BID #30 tab 05/05/17 Rx predniSONE 60 mg PO QA- #42 tab 05/05/17 Rx - History PMHx: CKD3, Gout, microcytic anemia, hypothyroidism, DMII, NILE, Asthma, HTN, CAD , Obesity hypoventilation syndrome with Trach, HLD, Uterine CA PSHx: BTL, Hysterectom s/p uterine CA, colonoscopy 2006, trach 2009 FHx: DM- Father HTN- Mother Social: Denies alcohol, drug, and tobacco use. - Review of Systems General: reports: fever/chills, fatigue Eyes: denies: eye pain, vision changes ENT: denies: nasal congestion, rhinorrhea Respiratory: reports: cough, shortness of breath. denies: congestion Cardiovascular: denies: chest pain, palpitation, edema Gastrointestinal: denies: nausea, vomiting, diarrhea, constipation, abdominal pain Genitourinary: reports: dysuria. denies: other (hematuria) Skin: denies: rashes, lesions Musculoskeletal: reports: pain, other (myalgias) Neurological: reports: weakness. denies: numbness - Vital signs BP: 174/98 HR: 84 RR: 24 Tmax: 99.1 Pox: 96% on 4L Wt: 173.73kg - Physical Exam Constitutional: NAD, awake, alert and oriented, well developed -Constitutional: Morbidly obese HEENT: normocephalic and atraumatic, PERRLA, grossly normal hearing, MMM, other (pharynx erythematous, tonsillar exudates) Neck: supple, trachea midline Heart: RRR, no murmurs/rubs/gallops Lungs: CTAB, good air movement, no wheezing Abdomen: soft, non-tender, bowel sounds present Musculoskeletal: other (obese, no obvious deformities) Neurological: no focal deficit Skin: no rash/lesions Psychiatric: normal mood and affect, good judgment and insight, intact recent and remote memory FMR H&P: Results - Labs Lab results: Lactic Acid 0.7 mmol/L (0.5-2.2) 06/30/18 02:44 B-Natriuretic Peptide 84.5 pg/mL (0-100) 06/30/18 02:44 - Radiology Interpretation CT scan - chest Status: report reviewed by me Additional comment: Mod sized sliding hiatal hernia. Pulm nodule in right upper lobe, 1.2cm unchanged from prior exam. No acute findings FMR H&P: A/P - Problem List (1) Acute and chronic respiratory failure with hypoxia Current Visit: Yes Status: Acute Code(s): J96.21 - ACUTE AND CHRONIC RESPIRATORY FAILURE WITH HYPOXIA (2) URI (upper respiratory infection) Current Visit: Yes Status: Acute Code(s): J06.9 - ACUTE UPPER RESPIRATORY INFECTION, UNSPECIFIED (3) Gout Current Visit: Yes Status: Acute Code(s): M10.9 - GOUT, UNSPECIFIED (4) Coronary artery disease Current Visit: No Status: Acute Code(s): I25.10 - ATHSCL HEART DISEASE OF [place] CORONARY ARTERY W/O ANG PCTRS (5) Hypertension Current Visit: No Status: Acute Code(s): I10 - ESSENTIAL (PRIMARY) HYPERTENSION (6) Hypothyroidism Current Visit: No Status: Acute Code(s): E03.9 - HYPOTHYROIDISM, UNSPECIFIED (7) Asthma Current Visit: No Status: Chronic Code(s): J45.909 - UNSPECIFIED ASTHMA, UNCOMPLICATED (8) DM2 (diabetes mellitus, type 2) Current Visit: No Status: Chronic (9) Morbid obesity with BMI of 70 and over, adult Current Visit: No Status: Chronic Code(s): E66.01 - MORBID (SEVERE) OBESITY DUE TO EXCESS CALORIES; Z68.45 - BODY MASS INDEX (BMI) 70 OR GREATER, ADULT (10) NILE (obstructive sleep apnea) Current Visit: No Status: Chronic Code(s): G47.33 - OBSTRUCTIVE SLEEP APNEA (ADULT) (PEDIATRIC) (11) Pickwickian syndrome Current Visit: No Status: Chronic Code(s): E66.2 - MORBID (SEVERE) OBESITY WITH ALVEOLAR HYPOVENTILATION - Plan Ms Peterson is a 63yo female with pmh of obesity hypoventilation syndrome with trach, NILE, Asthma presenting with acute on chronic hypoxic respiratory failure Acute on Chronic Hypoxic Respiratory failure 2/2 Asthma exacerbation vs URI - Flu neg, RVP pending from ED - Symptoms consistent with viral infection - s/p Vanc/Levaquin/Clinda in ED to cover for vent assoc pneumonia - s/p methylpred in ED - Ordered procal - Continue supplemental O2, monitor O2 sats and wean accordingly to maintain >95 % - Duonebs q4hr PATRICK, q2h PRN - Continue steroids - Starting Tamiflu for suspected influenza - Admit to tele Sepsis 2/2 Strep throat vs URI - Fever, leukocytosis 16.4 - Tamiflu as above for suspected influenza - RVP pending - Continue - Blood & Urine cultures pending - UA pending Dysuria - UA & Culture pending DMII - A1c 7.4 on 03/10 - Continue home meds - CC diet - ACHS accuchecks - SSI & Hypoglycemic protocol CAD - Continue home meds Hypothyroidism - Continue home meds CKD3 - Cr 1.02 Microcytic Anemia - Hgb 10.7, at baseline NILE - Continue CPAP HS Asthma - Manage as above HTN - Continue home meds Obesity hypoventilation syndrome - Pt has trach, manage as above HLD - Continue home meds Gout - Continue home meds Code Status: FULL DVT ppx: SCDs PCP: [facility] (Dr Leavitt) FMR H&P: Upper Level - Pertinent history 63 y/o F w/ PMHx of pickwickian syndrome, NILE on HS CPAP, and asthma w/ trach, HTN, IDDM presents as a TXR from [facility] ER for evaluation of acute onset of sore throat, fever, chills, muscle aches, and difficulty breathing that started earlier in the day on Saturday. Fever to 101.2 degF out outside ER. Strep and flu swab obtained w/ strep positive and Flu negative for flu A and B. CT of the chest obtained which was negative for PNA and stable from prior imaging studies. Pt requiring 4L trach collar to maintain sats in the 90s as she was initially 87% on RA at the outside ER. She is usually mid-high 90s on RA and only uses CPAP at night through her trach. Denies any sinus congestion/ rhinorrhea. Endorses RAMOS and cough productive of green sputum which is different from her baseline. Also endorses an episode of epistaxis earlier today however. Notes sick contact w/ her Grand-Niece who had URI sxs and a fever approx.. 1-2 weeks ago. Also endorses increased urinary frequency and dysuria and thinks she may have a UTI. Pt also reports hospitalization for similar sxs last year for the flu. - Pertinent findings CT Chest no PE, No PNA, stable 1.2 cm pulm nodule WBC 16.4 Hgb 10.7 Plt 310 Neut: 84% Rapid Strep Positive Flu swab - Negative PE: GEN: Obese, on 4L trach collar. Speaking in full sentences, in no acute resp distress HEENT: Normocephalic/atraumatic. PERLLA, EOMI. Injected pharynx w/ tonsillar swelling and exudates b/l. Uvula midline. No asymmetry. No bulging. CARDS: RRR, no murmur, rubs, no gallops PULM: Course breath sounds throughout. Good overall air movement - Plan Date/Time: 06/30/180 Gibson Mathis. Jean Marie Leavitt MD, have evaluated this patient and agree with findings/plan as outlined by graphic design intern resident. Pertinent changes/additions are listed here. 63 y/o F w/: 1. Acute on Chronic Hypoxic Respiratory Failure 2/2 Asthma Exacerbation likely 2 /2 viral LRTI - CT negative for acute PNA - Likely w/ viral LRTI given acute onset and associated viral syndrome sxs w/ fever/chills/body aches/headache - Viral panel ordered from ER, pending results. Will go ahead and start Tamiflu for suspected flu given acute onset of sxs and known sick contact w/ sxs consistent w/ flu while in endemic area - Cont. w/ Supplemental O2 to maintain O2 sats >94%. Wean as tolerated - Scheduled and PRN Nebs q4 and q2 hrs respectively - Steroids started in the ER which we will continue - Will plan to consult pulm in the AM for further recommendations given pts complicated pulm hx 2. Sepsis likely 2/2 Strep Pharyngitis vs viral LRTI - Pt allergic to cephalosporins. Already received Levaquin, clinda, and vanc at outside ER - Will add Tamiflu pending viral panel results obtained in ER - BCx and UCx obtained in the ER - Strict I/Os to monitor volume status - Gently fluids 2/2 prevent fluid overload 3. Dysuria - Will check U/A and Culture - Broad spectrum abx given in ER should cover for any possible UTI - Will plan to consolidate pending U/A results 4. HTN - Significantly elevated from pts usual baseline in clinic - Possibly 2/2 being acutely ill - Will cont. w/ home meds and have PRN IV medication available 5. Other Chronic Medical Problems Per Glass Inserter Notes Addendum - Attending - Attending Attestation Date/Time: 06/30/18 [id number] I personally evaluated the patient and discussed the management with Dr. Muniz I agree with the History, Examination, Assessment and Plan documented above with any addition or exceptions noted below. 63 yo morbidly obese type 2 diabetic female admiitted and transferred from at [facility] ER with Fever, malaise and sore throat. Patient with known recent flu contact found rapid strept positive with PMHX obesity hypoventilation syndrome s/p tracheostomy 2009. Patient with asthmatic bronchitis steroids and respiratory support initiated currently patient sating well with supplemental oxygen. Note patient c/o dysuria as well had received levaquin and urine culture has been obtained. Empirical tamiflu Sepsis with likely source pharyngitis verse influenza viral panel ordered.
[2018-06-30 04:55] LABS: Bilirubin Small (Negative); Blood, Urine Negative (Negative); Clarity CLEAR (Clear); Glucose, Urine (Dipstick) Negative (Negative); Leukocyte Small (Negative); Nitrite Negative (Negative); Protein, Urine (Dipstick) 100 mg/dL (Neg-Trace); Specific Gravity, Urine 1.028 (1.002-1.036)
[2018-06-30 05:01] LABS: Bacteria/HPF None Seen HPF (None Seen); Hyaline Casts/LPF 4-6 HYALINE CAST LPF (0-3 Hyaline); Pathc Cast-AUWi Flag 0.95 (0-2.49)
[2018-06-30] MEDS ORDERED: HumaLOG 300 UNITS/3 ML VIAL SC PRN (08:56)
[2018-06-30] MEDS ORDERED: Clotrimazole 1 % Cream 30 GM TUBE TOP PRN (08:56)
[2018-06-30] MEDS ORDERED: Docusate 100 MG CAP PO PRN (08:56)
[2018-06-30] MEDS ORDERED: Dextrose 5% in Water 1,000 ML IV PRN (08:56)
[2018-06-30] MEDS ORDERED: Dextrose 50% Abboject 50 ML SYRINGE SLOW IVP PRN (08:56)
[2018-06-30] MEDS ORDERED: Acetaminophen 325 MG TAB PO PRN (08:56)
[2018-06-30] MEDS ORDERED: Polyethylene Glycol 3350 17 GM Packet PO PRN (08:56)
[2018-06-30] MEDS ORDERED: Zolpidem Tartrate 5 MG TAB PO PRN (09:27)
[2018-06-30] MEDS ORDERED: predniSONE 20 MG TAB PO SCH (09:30)
[2018-06-30] MEDS ORDERED: Carvedilol 3.125 MG TAB PO SCH (09:30)
[2018-06-30] MEDS ORDERED: Acetaminophen 325 MG TAB ONE ×2 (10:03→20:09)
[2018-06-30] MEDS ORDERED: HumaLOG 300 UNITS/3 ML VIAL ONE (11:19)
[2018-06-30 15:17] LABS: Bilirubin Small (Negative); Blood, Urine Negative (Negative); Clarity CLOUDY (Clear); Glucose, Urine (Dipstick) Negative (Negative); Leukocyte Moderate (Negative); Nitrite Negative (Negative); Pathc Cast-AUWi Flag 2.44 (0-2.49); Protein, Urine (Dipstick) 100 mg/dL (Neg-Trace); Specific Gravity, Urine 1.028 (1.002-1.036); Squamous Epithelial 21-50 HPF (0-3)
[2018-06-30 15:37] LABS: Bacteria/HPF 2+ HPF (None Seen)
[2018-06-30 15:38] LABS: Hyaline Casts/LPF 0-3 HYALINE CAST LPF (0-3 Hyaline); RBC/HPF 0-3 HPF (0-3)
[2018-06-30] MEDS ORDERED: HumuLIN 70/30 (300 UNITS/3 ML VIAL) SC SCH (18:00)
[2018-06-30] MEDS: metFORMIN 500 MG TAB PO SCH (22:54)
[2018-06-30] MEDS: Levothyroxine Sodium 125 MCG TAB PO SCH (22:54)
[2018-06-30] MEDS: Allopurinol 300 MG TAB PO SCH (22:55)
[2018-06-30] MEDS: cloNIDine 0.3 MG TAB PO SCH (22:55)
[2018-06-30] MEDS: Amlodipine 10 MG TAB PO SCH (22:55)
[2018-06-30] MEDS: Clopidogrel Bisulfate 75 MG TAB PO SCH (22:55)
[2018-06-30] MEDS: HumuLIN 70/30 (300 UNITS/3 ML VIAL) SC SCH (22:56)
[2018-06-30] MEDS: Ferrous Sulfate 325 MG TAB PO SCH (22:56)
[2018-06-30] MEDS: Losartan 25 MG TAB PO SCH (22:57)
[2018-06-30] MEDS: Ketotifen Fumarate 0.025% Ophth Soln 5 ml Bottle EA EYE SCH (22:57)
[2018-06-30] MEDS: Penicillin V Potassium 250 MG TAB PO SCH ×2 (22:57→22:58)
[2018-06-30] MEDS: Potassium Chloride 8 MEQ TAB PO SCH (22:58)
[2018-06-30] MEDS: Carvedilol 3.125 MG TAB PO SCH (22:59)
[2018-06-30 23:02] VITALS: BMI 61.7
[2018-07-01] MEDS: Levothyroxine Sodium 125 MCG TAB PO SCH (06:31)
[2018-07-01 06:43] LABS: #Lymphocytes 2.2 thou/uL (1.20-3.40); #Monocytes 1.4 thou/uL (0.11-0.59); %Basophils 0.2 % (0.0-1.0); %Eosinophils 0.1 % (0.0-10.0); %Lymphocytes 11.2 % (21.0-51.0); %Monocytes 6.9 % (0.0-10.0); %Neutrophils 81.7 % (42.0-75.0); Hemoglobin 10.1 g/dL (12.0-16.0); Mean Corpuscular HGB CONC 30.2 g/dL (32.0-36.0); Mean Corpuscular Hemoglobin 26.3 pg (27.0-31.0); Mean Corpuscular Volume 87.2 fL (78.0-98.0); Mean Platelet Volume 9.6 fL (7.4-10.4); Platelet Count 276 thou/uL (130-400); Red Blood Cell (RBC) Count 3.85 mill/uL (4.20-5.40); White Blood Cell (WBC) Count 19.6 thou/uL (4.8-10.8)
[2018-07-01 07:01] LABS: Anion Gap 15 mmol/L (10-20); BUN (Urea Nitrogen) 28 mg/dL (9.8-20.1); Calc. Creatinine Clearance 124 mL/min (70-130); Calcium 9.9 mg/dL (7.8-10.44); Carbon Dioxide 25 mmol/L (23-31); Chloride 103 mmol/L (98-107); Estimated GFR-MDRD 59; Glucose 165 mg/dL (80-115); Potassium 4.2 mmol/L (3.5-5.1); Sodium 139 mmol/L (136-145)
--- NOTE | 2018-07-01 07:22 | PDOC.FM ---
- Subjective Subjective: Ms. Stubbs is resting comfortably in bed with bipap in place, she reports a sore throat. breathing at baseline, tolerating PO - Objective Vital Signs & Weight: Vital Signs (12 hours) Temp Pulse Resp BP Pulse Ox 07/01/18 04:00 97.9 F 91 16 161/88 H 95 07/01/18 01:36 65 16 96 06/30/18 23:01 98.1 F 71 22 H 126/59 L 97 06/30/18 22:15 98.1 F 71 22 H 126/59 L 97 Weight Weight 152.951 kg I&O: 06/30/18 07/01/18 07/02/18 06:59 06:59 06:59 Intake Total 240 Balance 240 Result Diagrams: 07/01/18 06:01 07/01/18 06:01 Phys Exam - Physical Examination Constitutional: NAD HEENT: moist MMs Respiratory: clear to auscultation bilateral Cardiovascular: RRR, no significant murmur Gastrointestinal: no distention Musculoskeletal: pulses present Neurological: moves all 4 limbs Psychiatric: normal affect Skin: no rash Dx/Plan (1) Acute and chronic respiratory failure with hypoxia Code(s): J96.21 - ACUTE AND CHRONIC RESPIRATORY FAILURE WITH HYPOXIA Status: Acute (2) URI (upper respiratory infection) Code(s): J06.9 - ACUTE UPPER RESPIRATORY INFECTION, UNSPECIFIED Status: Acute (3) Atypical chest pain Code(s): R07.89 - OTHER CHEST PAIN Status: Acute (4) Diabetes type 2, uncontrolled Code(s): E11.65 - TYPE 2 DIABETES MELLITUS WITH HYPERGLYCEMIA Status: Acute (5) Hypertension Code(s): I10 - ESSENTIAL (PRIMARY) HYPERTENSION Status: Acute (6) Hypothyroidism Code(s): E03.9 - HYPOTHYROIDISM, UNSPECIFIED Status: Acute (7) Asthma Code(s): J45.909 - UNSPECIFIED ASTHMA, UNCOMPLICATED Status: Chronic (8) NILE (obstructive sleep apnea) Code(s): G47.33 - OBSTRUCTIVE SLEEP APNEA (ADULT) (PEDIATRIC) Status: Chronic (9) Pickwickian syndrome Code(s): E66.2 - MORBID (SEVERE) OBESITY WITH ALVEOLAR HYPOVENTILATION Status : Chronic - Plan Plan: Acute on Chronic Hypoxic Respiratory failure 2/2 strep throat - RVP neg from ED, procal neg, GAS positive - s/p Vanc/Levaquin/Clinda in ED to cover for vent assoc pneumonia - s/p methylpred in ED, continue - Continue supplemental O2, monitor O2 sats and wean accordingly to maintain >95 % - Duonebs q4hr PETER, q2h. Continue oral steroids - start Pen V, ibuprofen peter after nurse confirms no allergy w/ pt Dysuria - UA contaminated, Culture pending DMII - A1c 7.4 on 03/10 - Continue home meds - CC diet - ACHS accuchecks - SSI & Hypoglycemic protocol CAD - Continue home meds Hypothyroidism - Continue home meds CKD3 - Cr 1.02 Microcytic Anemia - Hgb 10.7, at baseline NILE - Continue CPAP HS Asthma - Manage as above HTN - Continue home meds Obesity hypoventilation syndrome - Pt has trach, manage as above HLD - Continue home meds Gout - Continue home meds Code Status: FULL DVT ppx: SCDs PCP: [facility] (Dr Leavitt) Dispo: begin pcn treatment, control pain, prepare for DC Addendum - Attending - Attending Attestation Date/Time: 07/01/18 [id number] I personally evaluated the patient and discussed the management with Dr. Poe I agree with the History, Examination, Assessment and Plan documented above with any addition or exceptions noted below. Patient not receiving oral Pen VK as regular scheduled RX rec IM x 1 (Bicillin 1.2 x 10milion units). Patient feeling better and otherwise at her baseline ok dismiss later today if she continues stable.
[2018-07-01] MEDS ORDERED: predniSONE 20 MG TAB PO SCH (08:00)
[2018-07-01] MEDS ORDERED: Chloraseptic Spray 180 ml Bottle PO PRN (08:45)
[2018-07-01] MEDS: Carvedilol 3.125 MG TAB PO SCH ×2 (09:05→17:28)
[2018-07-01] MEDS: metFORMIN 500 MG TAB PO SCH ×2 (09:05→17:28)
[2018-07-01] MEDS: Allopurinol 300 MG TAB PO SCH (09:06)
[2018-07-01] MEDS: Amlodipine 10 MG TAB PO SCH ×2 (09:06→10:13)
[2018-07-01] MEDS: cloNIDine 0.3 MG TAB PO SCH (09:06)
[2018-07-01] MEDS: Clopidogrel Bisulfate 75 MG TAB PO SCH (09:07)
[2018-07-01] MEDS: Ferrous Sulfate 325 MG TAB PO SCH (09:07)
[2018-07-01] MEDS: Losartan 25 MG TAB PO SCH (09:08)
[2018-07-01] MEDS: Penicillin V Potassium 250 MG TAB PO SCH (09:17)
[2018-07-01] MEDS: Ibuprofen 600 MG TAB PO SCH ×2 (09:25→15:31)
[2018-07-01] MEDS: Potassium Chloride 8 MEQ TAB PO SCH (09:25)
[2018-07-01] MEDS: Ketotifen Fumarate 0.025% Ophth Soln 5 ml Bottle EA EYE SCH (09:34)
[2018-07-01] MEDS ORDERED: Bicillin CR 1.2 MILL UNITS/2 ML SYRINGE IM SCH (10:00)
[2018-07-01] MEDS: HumuLIN 70/30 (300 UNITS/3 ML VIAL) SC SCH (11:20)
[2018-07-01 15:39] VITALS: BP 180/93; TEMP 97.6
[2018-07-01] MEDS ORDERED: Nitrofurantoin Monohyd/M-Cryst 100 MG CAP PO SCH (21:00)
--- NOTE | 2018-07-02 04:22 | DIS ---
DATE OF ADMISSION: 06/30/2018 DATE OF DISCHARGE: 07/01/2018 RESIDENT: Jeff Poe DO CONSULTS: None. PROCEDURES: None. DISCHARGE MEDICATIONS: 1. Multivitamin one each p.o. daily. 2. Allopurinol 300 mg p.o. daily. 3. Norvasc 10 mg p.o. at bedtime. 4. Losartan 50 mg p.o. daily. 5. Levothyroxine 125 mcg p.o. q.a.m. 6. Pantoprazole 40 mg p.o. daily. 7. Metformin 500 mg p.o. b.i.d. 8. Clonidine 0.3 mg p.o. b.i.d. 9. Isosorbide mononitrate 120 mg p.o. daily. 10. Klor-Con 8 mEq p.o. b.i.d. 11. Coreg 3.125 mg p.o. b.i.d. 12. Plavix 75 mg p.o. daily. 13. Feosol 325 mg p.o. daily. 14. Tylenol Arthritis 650 mg p.o. q.6 hours p.r.n. 15. Novolin 70/30 28 units subcu at bedtime. 16. Novolin 70/30 40 units subcu q.a.m. 17. Multivitamin daily. 18. Prednisone 40 mg p.o. q.a.m. for 5 days. 19. Macrobid 100 mg p.o. b.i.d. for 7 days. DISCONTINUED MEDICATIONS: None. PRIMARY DIAGNOSIS: Acute on chronic hypoxic respiratory failure secondary to a strep throat. SECONDARY DIAGNOSES: 1. Urinary tract infection. 2. Diabetes mellitus type 2. 3. Coronary artery disease. 4. Hypothyroidism. 5. Chronic kidney disease, 3. 6. Microcytic anemia. 7. Obstructive sleep apnea. 8. Asthma. 9. Hypertension. 10. Obesity hypoventilation syndrome. 11. Hyperlipidemia. 12. Gout. HISTORY OF PRESENT ILLNESS/HOSPITAL COURSE: Ms. Peterson is a 63-year-old female who presents with a past medical history significant for asthma, Pickwickian syndrome with tracheostomy, obstructive sleep apnea, on CPAP, and diabetes mellitus type 2. She comes from [facility] with a history of fever, malaise, and sore throat. She tested positive there for group A Streptococcus via throat culture and swab. She also reports productive cough. She did not have a flu shot this year, but does report one sick contact 2 weeks ago. She also endorses some dysuria which she reports is very similar to UTIs she has had in the past. The patient had increased need for oxygen and was therefore determined that she had to be transferred to [facility] where she was admitted to the hospital for hypoxic respiratory failure secondary to mechanical obstructions from swelling from group A strep. She was in ER hold for approximately 18 hours, did not receive antibiotics at that time, although they were ordered the following day this was discovered and she was given adequate antibiotics via a shot of Bicillin and started on Macrobid. She was tolerating p.o. at that time, did not have any increased oxygen requirement and was feeling much better the day before. Instructed to continue to drink plenty of fluids, take [id number] ibuprofen for inflammation and gargle with warm salt water. She was discharged home with appropriate antibiotics for UTI and being adequately treated for group A Streptococcus. DISCHARGE DISPOSITION: Stable. DISCHARGE INSTRUCTIONS: Location: Home with home health. Diet: Diabetic. Activity: As tolerated. Followup: With PCP, Dr. Leavitt on Saturday, 07/02 for further care. Job ID: [id number] [facility]
== END 2018-07-01 18:00 | disposition home or self-care (01) ==
LOC: ERS 01:36 → ERHOLD 03:28 → 2NO 22:22
PROVIDERS: ADMIT Student in an Organized Health Care Education/Training Program; ATTEND Student in an Organized Health Care Education/Training Program
DX: J02.0 Streptococcal pharyngitis (principal); B95.0 Streptococcus, group A, as the cause of diseases classified elsewhere; J45.901 Unspecified asthma with (acute) exacerbation; J96.21 Acute and chronic respiratory failure with hypoxia; N39.0 Urinary tract infection, site not specified; I12.9 Hypertensive chronic kidney disease with stage 1 through stage 4 chronic kidney disease, or unspecified chronic kidney disease; E11.22 Type 2 diabetes mellitus with diabetic chronic kidney disease; N18.3 Chronic kidney disease, stage 3 (moderate); D50.9 Iron deficiency anemia, unspecified; I25.10 Atherosclerotic heart disease of native coronary artery without angina pectoris; E78.5 Hyperlipidemia, unspecified; E03.9 Hypothyroidism, unspecified; E66.2 Morbid (severe) obesity with alveolar hypoventilation; Z68.44 Body mass index [BMI] 60.0-69.9, adult; M10.9 Gout, unspecified; Z99.89 Dependence on other enabling machines and devices; Z85.42 Personal history of malignant neoplasm of other parts of uterus; Z90.710 Acquired absence of both cervix and uterus; Z98.51 Tubal ligation status; Z88.6 Allergy status to analgesic agent; Z79.02 Long term (current) use of antithrombotics/antiplatelets; Z79.4 Long term (current) use of insulin; Z79.2 Long term (current) use of antibiotics; Z79.52 Long term (current) use of systemic steroids; Z79.899 Other long term (current) drug therapy; Z98.890 Other specified postprocedural states
CPT/HCPCS: 36415; 36416; 80048; 81003; 81015; 83605; 83880; 84145; 84484; 85025; 87040; 87633; 87798; 94640; 94760; 96372; 96374; G0378; J0558; J1815; J2930; J7620

== ENCOUNTER 2018-10-18 23:36 | Observation (INO) | payer OTHER ==
[2018-10-19 00:29] LABS: Hemoglobin 10.7 g/dL (12.0-16.0); Mean Corpuscular Hemoglobin 25.8 pg (27.0-31.0); Mean Corpuscular Volume 88.6 fL (78.0-98.0); Red Blood Cell (RBC) Count 4.16 mill/uL (4.20-5.40); White Blood Cell (WBC) Count 7.1 thou/uL (4.8-10.8)
[2018-10-19 00:49] LABS: ALT (SGPT) 28 U/L (8-55); AST (SGOT) 23 U/L (5-34); Alkaline Phosphatase 128 U/L (40-150); Anion Gap 11 mmol/L (10-20); BUN (Urea Nitrogen) 27 mg/dL (9.8-20.1); Bilirubin, Total 0.3 mg/dL (0.2-1.2); CK (CPK) 375 U/L (29-168); Calc. Creatinine Clearance 0 mL/min (70-130); Calcium 10.8 mg/dL (7.8-10.44); Carbon Dioxide 32 mmol/L (23-31); Chloride 103 mmol/L (98-107); Estimated GFR-MDRD 69; Globulin 4.6 g/dL (2.4-3.5); Glucose 121 mg/dL (80-115); Potassium 4.3 mmol/L (3.5-5.1); Protein, Total 8.6 g/dL (6.0-8.3); Sodium 142 mmol/L (136-145)
[2018-10-19 00:52] LABS: #Basophils 0.1 thou/uL (0.0-0.2); #Eosinphils 0.1 thou/uL (0.0-0.7); #Monocytes 0.6 thou/uL (0.11-0.59); #Neutrophils 4.3 thou/uL (1.40-6.50); %Basophils 0.8 % (0.0-1.0); %Lymphocytes 27.5 % (21.0-51.0); %Monocytes 8.8 % (0.0-10.0); Hypochromia SLIGHT = 6-15 cells (100X) (0-5/hpf); MDiff Complete? YES; Mean Corpuscular HGB CONC 29.1 g/dL (32.0-36.0); Mean Platelet Volume 9.1 fL (7.4-10.4); Platelet Count 298 thou/uL (130-400); Platelet Morphology Comment Appears Adequate; RBC Distribution Width 18.2 % (11.5-14.5)
[2018-10-19] MEDS ORDERED: Ondansetron ODT 4 MG TAB PO PRN (01:14)
[2018-10-19] MEDS ORDERED: Acetaminophen 325 MG TAB PO PRN (01:14)
[2018-10-19] MEDS ORDERED: Bisacodyl 5 MG TAB PO PRN (01:14)
[2018-10-19] MEDS ORDERED: Nitroglycerin 0.4 MG TAB (25 Tab Bottle) PO PRN (01:14)
[2018-10-19] MEDS ORDERED: Senokot S 8.6-50 MG TAB PO PRN (01:14)
[2018-10-19] MEDS ORDERED: Calcium Carbonate 500 MG ChewTAB PO PRN (01:14)
--- NOTE | 2018-10-19 01:19 | PDOC.FPRHP ---
- History of Present Illness Chief Complaint: chest pain History of Present Illness: 63 yo f with obesity hypoventilation syndrome, tracheostomy, and chronic debilitation presents with chest pain that started at noon yesterday while laying in bed. She says the pain is left sided and tingling, and a squeezing pain that radiates down he left arm. Denies n/v/diaphoresis. There is some radiation of the pain to her back/back of her shoulders. It started after burping, but she thinks it also feels like a muscle spasm. She denies shortness of breath associated with the pain. She has never had a heart attack. She also complains of dysuria and frequency for one week. ED Course: nitro paste, nitro SL - Allergies/Adverse Reactions Allergies Allergy/AdvReac Type Severity Reaction Status Date / Time aspirin Allergy Verified 06/30/18 23:09 ceftriaxone sodium Allergy Verified 06/30/18 23:09 [From Rocephin] - Home Medications Medication Instructions Recorded Confirmed Type Acetaminophen [Tylenol Arthritis] 650 mg PO Q6HR PRN 07/01/18 07/01/18 History Allopurinol [Zyloprim] 300 mg PO DAILY 07/01/18 07/01/18 History Carvedilol 3.125 mg PO BID 07/01/18 07/01/18 History Clopidogrel Bisulfate [Plavix] 75 mg PO DAILY 07/01/18 07/01/18 History Ferrous Sulfate [Feosol] 325 mg PO DAILY 07/01/18 07/01/18 History Insulin NPH Hum/Reg Insulin HM 28 unit SC 07/01/18 07/01/18 History [Novolin 70/30] Insulin NPH Hum/Reg Insulin HM 40 unit SC QAM 07/01/18 07/01/18 History [Novolin 70/30] Isosorbide Mononitrate [Isosorbide 120 mg PO DAILY 07/01/18 07/01/18 History Mononitrate ER] Levothyroxine Sodium [Levo-T] 125 mcg PO QAM 07/01/18 07/01/18 History Losartan Potassium [Cozaar] 50 mg PO DAILY 07/01/18 07/01/18 History Multivitamin [Multiple Vitamins] 1 each PO DAILY 07/01/18 07/01/18 History Nitrofurantoin Monohyd/M-Cryst 100 mg PO BID #14 cap 07/01/18 Rx [Macrobid] Olopatadine HCl [Pazeo] 1 drp OP DAILY 07/01/18 07/01/18 History Pantoprazole Sodium 40 mg PO DAILY 07/01/18 07/01/18 History Potassium Chloride [Klor-Con 8] 8 meq PO BID 07/01/18 07/01/18 History amLODIPine Besylate [Norvasc] 10 mg PO HS 07/01/18 07/01/18 History cloNIDine [Catapres] 0.3 mg PO BID 07/01/18 07/01/18 History metFORMIN HCl [Metformin HCl] 500 mg PO BID 07/01/18 07/01/18 History predniSONE 40 mg PO QAM-WM #8 tab 07/01/18 Rx - History PMHx: DM, gout, OA, NILE, anemia, HTN, HLD, asthma, Obesity hypoventilation syndrome, palpitations PSHx: hysterectomy, BTL, right great toe nail removal, tracheostomy 2009 FHx: Mom-CVA, sister-GA, brothers-GA Social:denies smoking, alcohol, drug use. - Review of Systems General: denies: fever/chills, weight/appetite/sleep changes ENT: denies: nasal congestion, rhinorrhea Respiratory: reports: shortness of breath. denies: cough, congestion Cardiovascular: reports: chest pain. denies: palpitation, edema, orthopnea Gastrointestinal: denies: nausea, vomiting, diarrhea Skin: denies: rashes, lesions Musculoskeletal: reports: pain, tenderness Neurological: denies: numbness, syncope Psychological: denies: anxiety, depression - Physical Exam Constitutional: NAD, awake, alert and oriented HEENT: normocephalic and atraumatic, PERRLA Heart: other (edema bilaterl lower extremities) -Heart: distant heart sounds Lungs: CTAB, no respiratory distress (decreased breath sounds bilaterally), no wheezing, no retractions Abdomen: soft, non-tender, other (protuberant) Musculoskeletal: other (bedbound) Skin: capillary refill <2 seconds Heme/Lymphatic: no unusual bruising or bleeding, no purpura Psychiatric: normal mood and affect FMR H&P: Results - Labs Result Diagrams: 10/19/18 01:50 10/19/18 01:50 Lab results: WBC 7.1 thou/uL (4.8-10.8) 10/19/18 00:18 Hgb 10.7 g/dL (12.0-16.0) L 10/19/18 00:18 Hct 36.8 % (36.0-47.0) 10/19/18 00:18 MCV 88.6 fL (78.0-98.0) 10/19/18 00:18 Plt Count 298 thou/uL (130-400) 10/19/18 00:18 Neutrophils % 61.0 % (42.0-75.0) 10/19/18 00:18 Sodium 142 mmol/L (136-145) 10/19/18 00:18 Potassium 4.3 mmol/L (3.5-5.1) 10/19/18 00:18 Chloride 103 mmol/L (98-107) 10/19/18 00:18 Carbon Dioxide 32 mmol/L (23-31) H 10/19/18 00:18 BUN 27 mg/dL (9.8-20.1) H 10/19/18 00:18 Creatinine 0.98 mg/dL (0.6-1.1) 10/19/18 00:18 Glucose 121 mg/dL (80-115) H 10/19/18 00:18 Calcium 10.8 mg/dL (7.8-10.44) H 10/19/18 00:18 Total Bilirubin 0.3 mg/dL (0.2-1.2) 10/19/18 00:18 AST 23 U/L (5-34) 10/19/18 00:18 ALT 28 U/L (8-55) 10/19/18 00:18 Alkaline Phosphatase 128 U/L (40-150) 10/19/18 00:18 Creatine Kinase 375 U/L (29-168) H 10/19/18 00:18 Serum Total Protein 8.6 g/dL (6.0-8.3) H 10/19/18 00:18 Albumin 4.0 g/dL (3.4-4.8) 10/19/18 00:18 - EKG Interpretation EKG: inverted t wave lead I, peaked T waves V2-5, but unchanged EKG from prior FMR H&P: A/P - Problem List (1) Atypical chest pain Current Visit: No Status: Acute Code(s): R07.89 - OTHER CHEST PAIN (2) Obesity hypoventilation syndrome Current Visit: Yes Status: Acute Code(s): E66.2 - MORBID (SEVERE) OBESITY WITH ALVEOLAR HYPOVENTILATION (3) Diabetes type 2, uncontrolled Current Visit: No Status: Acute Code(s): E11.65 - TYPE 2 DIABETES MELLITUS WITH HYPERGLYCEMIA (4) Hypertension Current Visit: No Status: Acute Code(s): I10 - ESSENTIAL (PRIMARY) HYPERTENSION (5) Asthma Current Visit: No Status: Chronic Code(s): J45.909 - UNSPECIFIED ASTHMA, UNCOMPLICATED (6) Morbid obesity with BMI of 70 and over, adult Current Visit: No Status: Chronic Code(s): E66.01 - MORBID (SEVERE) OBESITY DUE TO EXCESS CALORIES; Z68.45 - BODY MASS INDEX (BMI) 70 OR GREATER, ADULT (7) Gout Current Visit: No Status: Acute Code(s): M10.9 - GOUT, UNSPECIFIED - Plan 63 yo f with with atypical chest pain admitted for chest pain rule out- Atypical chest pain- -left sided, with radiation, tingling, at rest, relieved with nitro -no record in [facility] of stress test, although pt may have had one with cards -will order stress test, but have primary day team call to see when her last stress was (Heart Score: 4, pt has a lot of risk factors). -nitro prn -serial EKGs and cardiac enzymes prn chest pain -ordered a lipid profile and hba1c as well -pt allergic to aspirin DM, type 2- -aware, hba1c ordered, and will restart home meds HTN -will monitor and restart home meds HLD -ordered FLP and will restart home meds Obesity hypoventilation syndrome- -has trach in place, not requiring O2 currently, although states her son is bringing her oxygen because she usually uses 3L at night Gout- -aware GERD- -aware, will restart home meds Code: FULL Diet: NPO PPX: lovenox Carmen Christopher MD, PGY-3 FMR H&P: Upper Level - Plan Date/Time: 10/19/18 0119 I, [], have evaluated this patient and agree with findings/plan as outlined by recruitment intern resident. Pertinent changes/additions are listed here. Addendum - Attending - Attending Attestation Date/Time: 10/19/18 7402 I personally evaluated the patient and discussed the management with Dr. Kylee Christopher. I agree with the History, Examination, Assessment and Plan documented above with any addition or exceptions noted below. Patient well known to our clinic here with chest pain. She is high risk for CAD and ACS due to comorbid conditions. She is currently feeling improved but BP is highly elevated. Will work to get BP under control, trend enzymes, and see if we can order stress testing, though her weight may preclude that. Continue other chronic meds for chronic conditions.
[2018-10-19] MEDS ORDERED: Mag-Al 1200 mg/1200 mg/30 ML UDCUP ONE (01:56)
[2018-10-19] MEDS ORDERED: Lidocaine Viscous Sol 2% 15 ml UD Cup ONE (01:56)
[2018-10-19 02:08] LABS: #Basophils 0.1 thou/uL (0.0-0.2); #Eosinphils 0.1 thou/uL (0.0-0.7); #Lymphocytes 1.9 thou/uL (1.20-3.40); #Monocytes 0.7 thou/uL (0.11-0.59); #Neutrophils 4.4 thou/uL (1.40-6.50); %Basophils 1.1 % (0.0-1.0); %Eosinophils 1.6 % (0.0-10.0); %Lymphocytes 26.7 % (21.0-51.0); %Monocytes 9.6 % (0.0-10.0); %Neutrophils 61.1 % (42.0-75.0); Hemoglobin 10.7 g/dL (12.0-16.0); Mean Corpuscular HGB CONC 29.9 g/dL (32.0-36.0); Mean Corpuscular Hemoglobin 26.5 pg (27.0-31.0); Mean Corpuscular Volume 88.7 fL (78.0-98.0); Mean Platelet Volume 9.3 fL (7.4-10.4); Platelet Count 294 thou/uL (130-400); RBC Distribution Width 18.4 % (11.5-14.5); Red Blood Cell (RBC) Count 4.04 mill/uL (4.20-5.40); White Blood Cell (WBC) Count 7.1 thou/uL (4.8-10.8)
[2018-10-19 02:31] LABS: ALT (SGPT) 27 U/L (8-55); AST (SGOT) 23 U/L (5-34); Albumin 3.8 g/dL (3.4-4.8); Alkaline Phosphatase 123 U/L (40-150); Anion Gap 12 mmol/L (10-20); BUN (Urea Nitrogen) 27 mg/dL (9.8-20.1); Bilirubin, Total 0.3 mg/dL (0.2-1.2); Calc. Creatinine Clearance 0 mL/min (70-130); Calcium 10.4 mg/dL (7.8-10.44); Carbon Dioxide 30 mmol/L (23-31); Cardiac Risk 3.4 (Less than 4.5); Chloride 103 mmol/L (98-107); Cholesterol 206 mg/dl (< 200 Desired); Estimated GFR-MDRD 72; Globulin 4.5 g/dL (2.4-3.5); Glucose 135 mg/dL (80-115); HDL Cholesterol 61 mg/dL (>60 Neg Risk); LDL Cholesterol, Calculated 120 mg/dL; Potassium 4.3 mmol/L (3.5-5.1); Protein, Total 8.3 g/dL (6.0-8.3); Sodium 141 mmol/L (136-145); Triglycerides 123 mg/dL (Less than 150)
[2018-10-19 02:34] LABS: Troponin I 0.025 ng/mL (< 0.028)
[2018-10-19] MEDS ORDERED: Dextrose 5% in Water 1,000 ML IV PRN (03:29)
[2018-10-19] MEDS ORDERED: HumaLOG 300 UNITS/3 ML VIAL SC PRN (03:29)
[2018-10-19] MEDS ORDERED: Dextrose 50% Abboject 50 ML SYRINGE SLOW IVP PRN (03:29)
[2018-10-19] MEDS ORDERED: hydrALAZINE 20 MG/ML VIAL SLOW IVP PRN ×2 (06:33→07:00)
[2018-10-19 06:50] LABS: Troponin I Less than 0.010 ng/mL (< 0.028)
--- NOTE | 2018-10-19 07:44 | RAD ---
FRONTAL VIEW CHEST: Date: 10/18/18 COMPARISON: 02/02/18. INDICATION: Chest pain. FINDINGS: There is a tracheostomy in place. Bilateral interstitial prominence is present. There is accentuation of the cardiomediastinal silhouette and pulmonary vasculature on the basis of patient rotation and p ortable technique. There is elevation of the right hemidiaphragm with mild effacement of the lateral right costophrenic sulcus. IMPRESSION: Findings favor fluid overload. Correlate for evidence of CHF. POS: C
[2018-10-19] MEDS ORDERED: ISOSORBIDE MONONITRATE 120 MG PO SCH (09:00)
[2018-10-19] MEDS ORDERED: Non-Formulary Item 1 EACH (Losartan Potassium [Cozaar] 50 MG) PO SCH (09:00)
[2018-10-19] MEDS ORDERED: metFORMIN 500 MG TAB PO SCH (09:00)
[2018-10-19] MEDS ORDERED: Enoxaparin Sodium 40 MG/0.4 ML SYRINGE SC SCH (09:00)
[2018-10-19] MEDS ORDERED: Losartan 25 MG TAB PO SCH (09:00)
[2018-10-19 09:35] VITALS: BMI 61.6
[2018-10-19 12:12] VITALS: BP 160/80
[2018-10-19] MEDS ORDERED: Phenazopyridine HCl 97.5 MG TABLET PO SCH (13:00)
[2018-10-19 13:32] LABS: Bacteria/HPF 4+ HPF (None Seen); Bilirubin Negative (Negative); Blood, Urine Trace (Negative); Clarity Turbid (Clear); Glucose, Urine (Dipstick) Normal (Negative); Leukocyte 500 Leu/uL (Negative); Nitrite 2+ (Negative); Protein, Urine (Dipstick) 20 mg/dL (Neg-Trace); RBC/HPF 0-3 HPF (0-3); Squamous Epithelial 0-3 HPF (0-3); Urobilinogen Normal mg/dL (Less than 2); WBC/HPF 21-50 HPF (0-3)
[2018-10-19 15:06] VITALS: TEMP 98.1
[2018-10-19] MEDS ORDERED: Nitrofurantoin Monohyd/M-Cryst 100 MG CAP PO SCH (21:00)
[2018-10-19] MEDS ORDERED: Amlodipine 10 MG TAB PO SCH (21:00)
--- NOTE | 2018-10-22 11:44 | DIS ---
DATE OF ADMISSION: 10/19/2018 DATE OF DISCHARGE: 10/19/2018 RESIDENT: Josseline Leslie DO ADMITTING ATTENDING: Fabio Brar MD DISCHARGE ATTENDING: Fabio Brar MD. CONSULTATIONS: None. PROCEDURES: None. PRIMARY DIAGNOSES: 1. Atypical chest pain. 2. Diabetes mellitus type 2. 3. Hypertension. 4. Hyperlipidemia. 5. Obesity hypoventilation syndrome. 6. Gout. 7. Gastroesophageal reflux disease. DISCHARGE MEDICATIONS: 1. Acetaminophen p.r.n. 2. Allopurinol 300 mg daily. 3. Amlodipine 10 mg daily. 4. Carvedilol 3.125 mg b.i.d. 5. Clonidine 0.3 mg b.i.d. 6. Plavix 75 mg daily. 7. Feosol 325 mg b.i.d. 8. Novolin 28 units subcutaneous at bedtime, 40 units subcutaneous q.a.m. 9. Isosorbide mononitrate extended release 240 mg daily. 10. Levothyroxine 125 mcg q.a.m. 11. Cozaar 50 mg daily. 12. Metformin 500 mg p.o. b.i.d. 13. Multivitamin one daily. 14. Nitrofurantoin 100 mg b.i.d. 15. Nitroglycerin 0.4 mg q.5 minutes p.r.n. 16. Pazeo one drop OP daily. 17. Pantoprazole 40 mg p.o. daily. 18. Phenazopyridine 97.5 mg daily. 19. Potassium chloride 16 mEq p.o. daily. HISTORY OF PRESENT ILLNESS/HOSPITAL COURSE: The patient is a 63-year-old female with past medical history of hypertension, obesity hypoventilation syndrome, and tracheostomy, presented to the emergency room after having chest pain that started at noon the day prior while lying in bed. She states that this pain was left sided, tingling, squeezing in character and radiated down the left arm. She denies any nausea, vomiting, or diaphoresis. There is also some radiation to the back of her shoulders. She said that it felt similar to a muscle spasm. She denies any shortness of breath associated with this pain. She has never had any heart attack in the past. She has also been having some dysuria and frequency with urination for about a week's time. LABORATORY DATA: Hemoglobin 10.7, MCV 88.7. Chemistries; A1c 7, glucose 135. Troponin was trended, less than 0.01; 0.025, 0.014. TSH was 2.89. Urine culture grew out E coli, pansensitive. UA was nitrite positive, leuk esterase positive, white blood cells 21-50, and 4+ bacteria. The patient's chest pain decreased. Blood pressure was stabilized and she was stable for discharge on 10/19/2018. LOCATION: Home. DIET: Bariatric diet, heart healthy diet. ACTIVITY: As tolerated or ad andre. FOLLOWUP: Follow up with primary care, Dr. Kearns in 7 days. Job ID: [id number]
--- NOTE | 2018-10-25 16:36 | EKG ---
Test Reason : Blood Pressure : / mmHG Vent. Rate : 079 BPM Atrial Rate : 079 BPM P-R Int : 136 ms QRS Dur : 096 ms QT Int : 394 ms P-R-T Axes : 045 -01 097 degrees QTc Int : 451 ms Normal sinus rhythm Cannot rule out Anterior infarct , age undetermined Abnormal ECG Confirmed by TYRELL MEJIA D.O. ([id number]), supervising film or videotape editor ILIANA MOREIRA ([id number]) on 10/25/2018 4:35:31 PM Referred By: Confirmed By:TRYELL MEJIA D.O.
== END 2018-10-19 17:45 | disposition home or self-care (01) ==
LOC: ERS 23:36 → ERHOLD 10-19 02:10 → IMCU/EMU 10-19 06:40
PROVIDERS: ADMIT Student in an Organized Health Care Education/Training Program; ATTEND Student in an Organized Health Care Education/Training Program
DX: R07.89 Other chest pain (principal); E10.9 Type 1 diabetes mellitus without complications; I10 Essential (primary) hypertension; E78.5 Hyperlipidemia, unspecified; E66.2 Morbid (severe) obesity with alveolar hypoventilation; M10.9 Gout, unspecified; K21.9 Gastro-esophageal reflux disease without esophagitis; D64.9 Anemia, unspecified; J45.909 Unspecified asthma, uncomplicated; Z68.44 Body mass index [BMI] 60.0-69.9, adult; Z87.891 Personal history of nicotine dependence; Z88.6 Allergy status to analgesic agent; Z88.1 Allergy status to other antibiotic agents; Z79.02 Long term (current) use of antithrombotics/antiplatelets; Z79.84 Long term (current) use of oral hypoglycemic drugs; Z79.899 Other long term (current) drug therapy
CPT/HCPCS: 36415; 36416; 71045; 80053; 80061; 81001; 82550; 83036; 84443; 84484; 85025; 87077; 87086; 87186; 93005; 96372; 96374; G0378; J0360; J1650

== ENCOUNTER 2018-12-16 13:35 | Outpatient (CLI) | payer OTHER ==
--- NOTE | 2018-12-16 13:55 | RAD ---
XR Chest Pa Lat @ POB History: Dyspnea Comparison: Chest radiograph October 18, 2018 Findings: Tracheostomy tube is similar. Mild pulmonary venous congestion and cardiomegaly. No pneumot horax. No confluent airspace consolidation. No acute osseous abnormality. Impression: Cardiomegaly and mild pulmonary venous congestion.
== END 2018-12-16 13:36 | disposition home or self-care (01) ==
LOC: RAD 13:35
PROVIDERS: ATTEND Internal Medicine
DX: R06.00 Dyspnea, unspecified (principal); I51.7 Cardiomegaly; R09.89 Other specified symptoms and signs involving the circulatory and respiratory systems
CPT/HCPCS: 71046